=== PATIENT | male | born 1985 | race Caucasian/White ===

== ENCOUNTER 2017-05-18 11:11 | Inpatient (IN) | payer OTHER ==
--- OUTSIDE RECORDS SUMMARY | 2017-05-18 11:14 | XMS REPORT | Clinical Summary ---
:1985 Author Organization [facility] Address [address] [place] [address] Care Team Providers Name Role Phone Erwin Hall MD Primary Care Provider Allergies No Known Allergies Current Medications Prescription Sig. Disp. Refills Start End Date Status Date fexofenadine-pseudoep Take 1 tablet by Active HEDrine (JR-D) mouth daily. 60-120 mg per 12 hr tablet hydrOXYzine (ATARAX) Take 50 mg by Active 25 MG tablet mouth nightly as needed for itching. levoFLOXacin Take 500 mg by Active (LEVAQUIN) 500 MG mouth daily. tablet ALPRAZolam (XANAX) 1 Take 1 mg by Active MG tablet mouth nightly as needed for anxiety. fluticasone (FLONASE) 2 sprays by Each Active 50 mcg/actuation Nare route nasal spray daily. amLODIPine (NORVASC) Take 1 tablet (5 30 tablet 0 08/08/19 Discontinued 5 mg tablet mg total) by 7 17 mouth daily for 30 days. levoFLOXacin Take 1 tablet 30 tablet 0 08/08/19 Discontinued (LEVAQUIN) 500 MG (500 mg total) 7 17 tablet by mouth daily for 30 days. ondansetron (ZOFRAN, Take 1 tablet (4 30 tablet 0 08/08/19 Discontinued HYDROCHLORIDE,) 4 mg total) by 7 17 MG tablet mouth every 8 (eight) hours as needed for nausea or vomiting for up to 30 days. prochlorperazine Take 1 tablet 30 tablet 0 08/08/19 Discontinued (COMPAZINE) 10 MG (10 mg total) by 7 17 tablet mouth every 6 (six) hours as needed for nausea or vomiting for up to 30 days. traMADol (ULTRAM) 50 Take 1 tablet 30 tablet 0 08/07/08/08/19 Discontinued mg tablet (50 mg total) by 7 17 mouth every 6 (six) hours as needed for moderate pain for up to 30 days. traMADol (ULTRAM) 50 Take 1 tablet 30 tablet 0 08/07/08/08/19 Discontinued mg tablet (50 mg total) by 7 17 mouth every 6 (six) hours as needed for moderate pain for up to 30 days. ondansetron (ZOFRAN, Take 1 tablet (4 30 tablet 0 08/07/08/08/19 Discontinued HYDROCHLORIDE,) 4 mg total) by 7 17 MG tablet mouth every 8 (eight) hours as needed for nausea or vomiting for up to 30 days. prochlorperazine Take 1 tablet 30 tablet 0 08/07/08/08/19 Discontinued (COMPAZINE) 10 MG (10 mg total) by 7 17 tablet mouth every 6 (six) hours as needed for nausea or vomiting for up to 30 days. amLODIPine (NORVASC) Take 1 tablet (5 30 tablet 0 08/08/19 Discontinued 5 mg tablet mg total) by 7 17 mouth daily for 30 days. levoFLOXacin Take 1 tablet 30 tablet 0 08/08/19 Discontinued (LEVAQUIN) 500 MG (500 mg total) 7 17 tablet by mouth daily for 30 days. traMADol (ULTRAM) 50 Take 1 tablet 30 tablet 0 09/07/19 mg tablet (50 mg total) by 7 17 mouth every 6 (six) hours as needed for moderate pain for up to 30 days. ondansetron (ZOFRAN, Take 1 tablet (4 30 tablet 0 09/07/19 HYDROCHLORIDE,) 4 mg total) by 7 17 MG tablet mouth every 8 (eight) hours as needed for nausea or vomiting for up to 30 days. amLODIPine (NORVASC) Take 1 tablet (5 30 tablet 0 08/07/08/13/19 Discontinued 5 mg tablet mg total) by 7 17 mouth daily for 30 days. prochlorperazine Take 1 tablet 30 tablet 0 09/07/19 (COMPAZINE) 10 MG (10 mg total) by 7 17 tablet mouth every 6 (six) hours as needed for nausea or vomiting for up to 30 days. levoFLOXacin Take 1 tablet 30 tablet 0 09/07/19 (LEVAQUIN) 500 MG (500 mg total) 7 17 tablet by mouth daily for 30 days. carvedilol (COREG) Take 1 tablet 60 tablet 1 09/12/19 6.25 MG tablet (6.25 mg total) 7 17 by mouth 2 (two) times a day for 30 days. fexofenadine Take 1 tablet 60 tablet 0 09/12/19 (JR) 60 MG (60 mg total) by 7 17 tablet mouth 2 (two) times a day for 30 days. arformoterol Take 2 mL (15 120 mL 0 08/13/19 Discontinued (BROVANA) 15 mcg/2 mL mcg total) by 7 17 solution for nebulization 2 nebulization (two) times a day for 30 days. ipratropium-albuterol Take 3 mL by 360 mL 0 09/12/19 (DUO-NEB) 0.5-2.5 nebulization 4 7 17 mg/mL nebulizer (four) times a day for 30 days. apixaban (ELIQUIS) 5 Take 2 tablets 28 tablet 0 08/20/19 mg tablet (10 mg total) by 7 17 mouth 2 (two) times a day for 7 days. apixaban (ELIQUIS) 5 Take 1 tablet (5 60 tablet 0 09/20/19 Discontinued mg tablet mg total) by 7 17 mouth 2 (two) times a day for 30 days. guaiFENesin (MUCINEX) Take 1 tablet 60 tablet 0 09/12/19 600 mg tablet (600 mg total) 7 17 extended release 12hr by mouth 2 (two) times a day for 30 days. budesonide Take 2 mL (0.5 120 mL 0 08/13/19 Discontinued (PULMICORT) 0.5 mg/2 mg total) by 7 17 mL nebulizer solution nebulization 2 (two) times a day for 30 days. fluticasone (FLONASE) 2 sprays (100 15.8 mL 0 09/12/19 50 mcg/actuation mcg total) by 7 17 nasal spray Each Nare route daily for 30 days. predniSONE Take 1 tablet 12 tablet 0 08/13/19 Discontinued (DELTASONE) 10 mg (10 mg total) by 7 17 tablet mouth daily for 30 days. Take 3/day for 2 days; 2/day for 2 days; 1/day for 2 days fluticasone-vilantero Inhale 1 30 each 0 09/12/19 l (BREO ELLIPTA) inhalations 7 17 200-25 mcg/dose daily for 30 blister with device days. powder for inhalation predniSONE 2 tabs daily x 4 10 tablet 0 08/17/19 (DELTASONE) 20 mg days. 7 17 tablet carvedilol (COREG) Take 6.25 mg by 09/20/19 Discontinued 6.25 MG tablet mouth 2 (two) 17 times a day with meals. amLODIPine (NORVASC) Take 5 mg by 09/20/19 Discontinued 5 mg tablet mouth daily. 17 LEVOTHYROXINE SODIUM Take by mouth. 09/16/19 Discontinued (LEVOTHYROXINE ORAL) 17 levETIRAcetam Take 1 tablet 60 tablet 0 10/20/19 (KEPPRA) 1000 MG (1,000 mg total) 7 17 tablet by mouth 2 (two) times a day for 30 days. ondansetron ODT Take 1 tablet (4 30 tablet 0 10/20/19 (ZOFRAN-ODT) 4 MG mg total) by 7 17 disintegrating tablet mouth every 8 (eight) hours as needed for nausea or vomiting for up to 30 days. apixaban (ELIQUIS) 5 Take 1 tablet (5 60 tablet 0 10/20/19 mg tablet mg total) by 7 17 mouth 2 (two) times a day for 30 days. HYDROcodone-acetamino Take 1 tablet by 10/20/19 phen (NORCO) 5-325 mg mouth every 6 7 17 per tablet (six) hours as needed for moderate pain for up to 30 days. Max Daily Amount: 4 tablets levETIRAcetam Take 1 tablet 60 tablet 0 12/09/19 (KEPPRA) 1000 MG (1,000 mg total) 7 17 tablet by mouth 2 (two) times a day for 30 days. Active Problems Problem Noted Date Convulsions 09/14/2016 Fever 08/10/2016 Malignant neoplasm of right testis 08/03/2016 Testicular cancer 07/31/2016 Encounters Date Type Specialty Care Team Description 11/08/2016 Emergency Emergency Medicine Waqar Convulsions, Salomón unspecified MD Serjio convulsion type (Primary Dx) 09/16/2016 Procedure Pass Oncology 09/14/2016 - Hospital Encounter Oncology Rehrer, Allen Convulsions, unspecified convulsion type (Primary Dx); 09/19/2016 DO Jean Paul Malignant neoplasm of right testis, unspecified whether descended or undescended Baljeet Womack DO Nguyen, Thuyen T., MD 09/14/2016 Procedure Pass Oncology 09/04/2016 Hospital Encounter Pulmonology [place] Malignant callie Norton MD of testis, unspecified laterality, unspecified whether descended or undescended 09/03/2016 Ancillary Orders Access [facility] MD of testis, unspecified laterality, unspecified whether descended or undescended 08/25/2016 Transcribe Orders Access [facility] MD of testis, unspecified laterality, unspecified whether descended or undescended (Primary Dx) 08/24/2016 Hospital Encounter Pulmonology [facility] MD 08/20/2016 Transcribe Orders Access [facility] Malignant neoplasm of testis, unspecified laterality, unspecified whether descended or undescended ( Primary Dx); MD Cierra Localized swelling, mass, or lump of upper extremity, left; Headache, unspecified headache type 08/14/2016 Orders Only Hematology and [place] [facility] MD 08/09/2016 - Hospital Encounter Oncology John Singh Fever, unspecified fever cause (Primary Dx); 08/12/2016 DO Cierra Pulmonary embolism, other Umberto Vang MD 08/08/2016 Hospital Encounter Hematology and [place] Malignant neoplasm Oncology MD Cierra of right testis, unspecified whether descended or undescended 08/08/2016 Orders Only Hematology and [place] MD 08/03/2016 - Hospital Encounter Hematology and [facility] Malignant neoplasm 08/07/2016 Oncology MD Abdulkadir of right testis, Umberto Vang, unspecified whether MD descended or undescended 07/31/2016 Hospital Encounter Pulmonology [facility] Malignant neoplasm MD Cierra of left testis, unspecified whether descended or undescended 07/31/2016 Hospital Encounter Pulmonology [place] Malignant neoplasm MD Cierra of left testis, unspecified whether descended or undescended 07/31/2016 Orders Only Hematology and [place] [facility] MD 07/30/2016 Transcribe Orders Access [facility] Malignant callie Norton MD of left testis, unspecified whether descended or undescended (Primary Dx) after 05/17/2016 Social History Tobacco Use Types Packs/Day Years Used Date Former Smoker Cigars 03/05/2001 - 06/15/2016 Smokeless Tobacco: Former User Snuff Quit: 08/05/2016 Tobacco Cessation: Ready to Quit: Yes Comments: Tobacco free for 5 days Alcohol Use Drinks/Week oz/Week Comments No Sex Assigned at Date Recorded Not on file Last Filed Vital Signs Vital Sign Reading Time Taken Blood Pressure 135/81 11/08/2016 10:00 PM CDT Pulse 84 11/08/2016 10:00 PM CDT Temperature 36.4 C (97.6 F) 11/08/2016 10:00 PM CDT Respiratory Rate 16 11/08/2016 10:00 PM CDT Oxygen Saturation 97% 11/08/2016 10:00 PM CDT Inhaled Oxygen Concentration - - Weight 120 kg (265 lb 3.2 oz) 09/19/2016 6:12 AM CDT Height 193 cm (6' 4") 11/08/2016 7:27 PM CDT Body Mass Index 32.28 09/19/2016 6:12 AM CDT Plan of Treatment Health Maintenance Due Date Last Done Comments INFLUENZA VACCINE 09/15/2017 Procedures Procedure Name Priority Date/Time Associated Diagnosis Comments DIFFUSION CAPACITY Routine 11/11/2016 9:05 Malignant neoplasm AM CDT of testis, unspecified laterality, unspecified whether descended or undescended EEG VIDEO MONITORING STAT 09/18/2016 2:28 Results for this PM CDT procedure are in the results section. EEG VIDEO MONITORING STAT 09/18/2016 2:40 Results for this AM CDT procedure are in the results section. EEG CONTINUOUS WITH STAT 09/17/2016 3:01 Results for this VIDEO REDUCED AM CDT procedure are in SERVICE the results section. EEG AWAKE/ASLEEP STAT 09/16/2016 7:51 Results for this LESS THAN 41 MIN PM CDT procedure are in the results section. NM CRITICAL CARE, Routine 09/16/2016 11:59 Results for this E/M 30-74 MINUTES AM CDT procedure are in the results section. EEG EXTENDED 41 - 60 STAT 09/14/2016 9:14 Results for this MINS PM CDT procedure are in the results section. HC CATH DUAL LUMEN Routine 08/03/2016 2:49 Results for this PICC PM CDT procedure are in the results section. HC US GUIDED Routine 08/03/2016 2:49 Results for this VASCULAR ACCESS PM CDT procedure are in the results section. HC CVL PICC INSERT 5 Routine 08/03/2016 2:49 Results for this YRS OR > PM CDT procedure are in the results section. after 05/17/2016 Results Diffusion capacity (11/11/2016 9:05 AM)ECG ED Preliminary Interpretation - NOT AN ORDER (11/08/2016 11:35 PM)Only the most recent of2 resultswithin the time period is included. Narrative Salomón Will MD 11/08/2016 11:35 PM ECG ED Preliminary Interpretation - Not an Order Performed by: SALOMÓN WILL Authorized by: SALOMÓN WILL ECG reviewed by ED Physician in the absence of a executive officer: yes Previous ECG: Previous ECG:Unavailable Interpretation: Interpretation: normal Rate: ECG rate:84 ECG rate assessment: normal Rhythm: Rhythm: sinus rhythm QRS: QRS axis:Left ST segments: ST segments:Normal ECG 12 lead (11/08/2016 8:03 PM)Only the most recent of3 resultswithin the time period is included. Component Value Ref Range Ventricular rate 83 Atrial rate 83 NM interval 160 QRSD interval 102 QT interval 380 QTC interval 446 P axis 1 45 QRS axis 1 -17 T wave axis 21 EKG impression Normal sinus rhythm-Moderate voltage criteria for LVH, may be normal variant-Borderline ECG- Specimen Performing Laboratory [facility] MUSE [address] [place] [address] Estimated GFR (11/08/2016 8:00 PM)Only the most recent of14 resultswithin the time period is included. Component Value Ref Range GFR Non Af Amer 88 mL/min/1.73 m2 GFR Af Amer >90 mL/min/1.73 m2 Comment: Chronic kidney disease: <60 mL/min/1.73m2 Kidney failure: <15 mL/min/1.73m2 The estimated GFR is calculated from the IDMS-traceable Modification of Diet in Renal Disease Equation. The accuracy of the calculation is poor when the creatinine is normal. Calculated values >90 mL/min/1.73m2 are not reported. This equation has not been validated in children (<18 years), women, the elderly (>70 years), or ethnic groups other than Caucasians and Americans. Specimen Performing Laboratory Plasma specimen [facility] DEPARTMENT OF PATHOLOGY AND GENOMIC MEDICINE [address] [place] [id number] CBC with platelet and differential (11/08/2016 8:00 PM)Only the most recent of15 resultswithin the time period is included. Component Value Ref Range WBC 14.07 (H) 4.50 - 11.00 k/uL RBC 4.60 4.40 - 6.00 m/uL HGB 13.5 (L) 14.0 - 18.0 g/dL HCT 40.8 (L) 41.0 - 51.0 % MCV 88.7 82.0 - 100.0 fL MCH 29.3 27.0 - 34.0 pg MCHC 33.1 31.0 - 37.0 g/dL RDW - SD 43.1 37.0 - 55.0 fL MPV 11.5 8.8 - 13.2 fL Platelet count 161 150 - 400 k/uL Nucleated RBC 0.00 /100 WBC Neutrophils 83.8 (H) 39.0 - 69.0 % Lymphocytes 6.7 (L) 25.0 - 45.0 % Monocytes 4.3 0.0 - 10.0 % Eosinophils 4.3 0.0 - 5.0 % Basophils 0.4 0.0 - 1.0 % Immature granulocytes 0.5Comment: "Immature granulocytes" 0.0 - 1.0 % (promyelocytes, myelocytes, metamyelocytes) Specimen Performing Laboratory [facility] DEPARTMENT OF PATHOLOGY AND [address] [address] Phosphorus level (11/08/2016 8:00 PM)Only the most recent of9 resultswithin the time period is included. Component Value Ref Range Phosphorus 1.5 (L) 2.4 - 4.5 mg/dL Specimen Performing Laboratory Plasma specimen [facility] DEPARTMENT PATHOLOGY [address] [address] Magnesium level (11/08/2016 8:00 PM)Only the most recent of12 resultswithin the time period is included. Component Value Ref Range Magnesium 2.1 1.6 - 2.6 mg/dL Specimen Performing Laboratory Plasma specimen [facility] DEPARTMENT OF PATHOLOGY [address] [address] Alcohol level, blood (11/08/2016 8:00 PM) Component Value Ref Range Alcohol None Detected mg/dL Comment: Normal None Detected Legal Intoxication in [place]80 mg/dL (0.08%) - Whole Blood Toxic [id number] mg/dL (0.2%) Potentially [id number] - 500 mg/dL (0.35 - 0.5%) Alcohol percent None Detected % Specimen Performing Laboratory Plasma specimen [facility] DEPARTMENT OF PATHOLOGY [address] [address] Basic metabolic panel (11/08/2016 8:00 PM)Only the most recent of8 resultswithin the time period is included. Component Value Ref Range Sodium 141 135 - 148 mEq/L Potassium 3.3 (L) 3.5 - 5.0 mEq/L Chloride 99 98 - 112 mEq/L CO2 25 24 - 31 mEq/L Anion gap 17 (H) 7 - 15 mEq/L Comment: Starting from May , anion gap calculation no longer incorporates potassium. Please note the change. BUN 14 6 - 20 mg/dL Creatinine 1.0 0.7 - 1.2 mg/dL Glucose 117 (H) 65 - 99 mg/dL Calcium 9.8 8.3 - 10.2 mg/dL Specimen Performing Laboratory Plasma specimen [facility] DEPARTMENT OF PATHOLOGY AND GENOMIC MEDICINE [address] [place] [address] CT Head Wo Contrast (11/08/2016 7:55 PM)Only the most recent of2 resultswithin the time period is included. Specimen Performing Laboratory [facility] [address] [place] [address] Narrative EXAMINATION: CT HEAD WO CONTRAST CLINICAL HISTORY: seizure COMPARISON:CT brain dated September 14, 2016 and MRI dated September 15, 2016 TECHNIQUE: Noncontrast enhanced images of the brain were obtained from the skull base to the vertex. Both soft tissue and bone reconstruction algorithms were performed.CT imaging was performed with iterative reconstruction technique and/or automated exposure control to reduce radiation dose. FINDINGS: The brain parenchyma has no acute lesion. The parmar-white matter differentiation is preserved. No evidence of acute intra or extra-axial hemorrhage, mass, mass effect or acute territorial infarction. There is no acute hydrocephalus. Basal cisterns are patent. The lucency in the medial anterior right frontal lobe is unchanged in the subcortical white matter. A postinfectious/inflammatory or traumatic insult is suggested. No definite new or acute brain parenchymal lesion identified. No acute soft tissue hematoma or laceration. Paranasal sinuses shows no acute air-fluid levels. There is mild mucosal thickening in the left maxillary sinus, inferiorly. Mastoid air cells are clear. Calvarium is intact. Mastoid air cells are clear.No skull fractures or aggressive bony lesions. IMPRESSION: Again identified is a focal subcortical white matter lucency in the medial anterior right frontal lobe. This is grossly similar to the prior CT exam. In a patient with seizures, recommend follow-up MRI imaging on a nonemergent outpatient basis to show stability from September 15, 2016 MRI. This may represent a chronic insult from prior infection/inflammation or traumatic insult and could conceivably represent a seizure focus. [id number] Procedure Note Interface, Radiology Results Incoming - 11/08/2016 8:56 PM CDT EXAMINATION: CT HEAD WO CONTRAST CLINICAL HISTORY: seizure COMPARISON: CT brain dated September 14, 2016 and MRI dated September 15, 2016 TECHNIQUE: Noncontrast enhanced images of the brain were obtained from the skull base to the vertex. Both soft tissue and bone reconstruction algorithms were performed. CT imaging was performed with iterative reconstruction technique and/or automated exposure control to reduce radiation dose. FINDINGS: The brain parenchyma has no acute lesion. The parmar-white matter differentiation is preserved. No evidence of acute intra or extra-axial hemorrhage, mass, mass effect or acute territorial infarction. There is no acute hydrocephalus. Basal cisterns are patent. The lucency in the medial anterior right frontal lobe is unchanged in the subcortical white matter. A postinfectious/inflammatory or traumatic insult is suggested. No definite new or acute brain parenchymal lesion identified. No acute soft tissue hematoma or laceration. Paranasal sinuses shows no acute air-fluid levels. There is mild mucosal thickening in the left maxillary sinus, inferiorly. Mastoid air cells are clear. Calvarium is intact. Mastoid air cells are clear. No skull fractures or aggressive bony lesions. IMPRESSION: Again identified is a focal subcortical white matter lucency in the medial anterior right frontal lobe. This is grossly similar to the prior CT exam. In a patient with seizures, recommend follow-up MRI imaging on a nonemergent outpatient basis to show stability from September 15, 2016 MRI. This may represent a chronic insult from prior infection/inflammation or traumatic insult and could conceivably represent a seizure focus. [facility]-[id number] Comprehensive metabolic panel (09/19/2016 4:00 AM)Only the most recent of6 resultswithin the time period is included. Component Value Ref Range Sodium 137 135 - 148 mEq/L Potassium 4.2 3.5 - 5.0 mEq/L Chloride 99 98 - 112 mEq/L CO2 24 24 - 31 mEq/L Anion gap 14 7 - 15 mEq/L Comment: Starting from May , anion gap calculation no longer incorporates potassium. Please note the change. BUN 18 6 - 20 mg/dL Creatinine 0.8 0.7 - 1.2 mg/dL Glucose 100 (H) 65 - 99 mg/dL Calcium 9.1 8.3 - 10.2 mg/dL Protein 6.5 6.3 - 8.3 g/dL Comment: 4.6-7.0 g/dL 1 week 4.4-7.6 g/dL 7 months-1year5.1-7.3 g/dL 1-2 years5.6-7.5 g/dL >3 years6.0-8.0 g/dL 18-150 6.3-8.3 g/dL Albumin 3.3 (L) 3.5 - 5.0 g/dL A/G ratio 1.0 0.7 - 3.8 Alkaline phosphatase 47 40 - 129 U/L AST 29 10 - 50 U/L ALT 48 5 - 50 U/L Total bilirubin 0.5 0.0 - 1.2 mg/dL Specimen Performing Laboratory Plasma specimen [facility] DEPARTMENT OF PATHOLOGY AND GENOMIC MEDICINE [address] [place] [address] MRI Abdomen W Wo Contrast (09/18/2016 6:56 PM) Specimen Performing Laboratory [facility] [address] [place] [address] Narrative EXAMINATION:MRI ABDOMEN W WO CONTRAST CLINICAL HISTORY:LIVER LESION ON PREVIOUS IMAGING TECHNIQUE: Multiplanar multisequence MR images of the abdomen were obtained pre - and post dynamic intravenous administration of Gadolinium.MRCP images were obtained with 3-D reconstructions on the acquisition scanner under concurrent supervision. COMPARISON:CT scan September 15, 2016 IMPRESSION: 1. There is a small lesion at the dome of the right lobe of the liver which corresponds to the CT finding. On T2-weighted images, demonstrates bright signal. Early postcontrast images do not demonstrate any enhancement. Delayed postcontrast images are obscured by patient respiratory motion artifact. Appearance on T2-weighted images suggests a benign etiology such as a small cyst or hemangioma. Technical difficulties related to patient's inability to suspend respiration do not allow further characterization. Diffusion-weighted sequence identifies a few additional tiny lesions which cannot be characterized. I would recommend a follow-up MRI in 6 months to assess for any interval change. 2.Spleen, pancreas, adrenals, and kidneys do not demonstrate any masses. 3.There is no retroperitoneal adenopathy or upper abdominal ascites. 4.There is no abnormality of the regional bone marrow. [facility]-[id number] Procedure Note Interface, Radiology Results Incoming - 09/18/2016 9:40 PM CDT EXAMINATION: MRI ABDOMEN W WO CONTRAST CLINICAL HISTORY: LIVER LESION ON PREVIOUS IMAGING TECHNIQUE: Multiplanar multisequence MR images of the abdomen were obtained pre - and post dynamic intravenous administration of Gadolinium. MRCP images were obtained with 3-D reconstructions on the acquisition scanner under concurrent supervision. COMPARISON: CT scan September 15, 2016 IMPRESSION: 1. There is a small lesion at the dome of the right lobe of the liver which corresponds to the CT finding. On T2-weighted images, demonstrates bright signal. Early postcontrast images do not demonstrate any enhancement. Delayed postcontrast images are obscured by patient respiratory motion artifact. Appearance on T2-weighted images suggests a benign etiology such as a small cyst or hemangioma. Technical difficulties related to patient's inability to suspend respiration do not allow further characterization. Diffusion-weighted sequence identifies a few additional tiny lesions which cannot be characterized. I would recommend a follow-up MRI in 6 months to assess for any interval change. 2. Spleen, pancreas, adrenals, and kidneys do not demonstrate any masses. 3. There is no retroperitoneal adenopathy or upper abdominal ascites. 4. There is no abnormality of the regional bone marrow. [facility]-[id number] Continuous EEG monitoring (09/18/2016 2:28 PM) Narrative CONTINUOUS VIDEO-EEG MONITORING REPORT Patient Name: Tomas Hernandez Date of : 1985 Gender: male Start Date: 09/18/16 Start Time: 00:00 End Date: 09/18/16 End Time: 13:18 Indication Seizures Technical Summary Technique:Modified international 10/20 system of EEG electrode placement was used. Visual Analysis of EEG-Video Monitoring:This electroencephalogram was recorded simultaneously with video throughout the monitoring. The EEG was visually inspected and analyzed for characterization of the background activity in all awake and sleep states, abnormal focal and generalized features, and intraictal and ictal epileptiform activity. Electrical seizure activity was correlated with the patients clinical activity recorded on video and video captured clinical events were correlated with simultaneously recorded EEG activity. Computer Analysis of EEG Waveforms:The EEG underwent continuous computerized digital spectral analysis, which consisted of real time detection of electrical events that could be considered epileptiform. All electrographic events identified by the detection program were visually inspected in order to assess the waveform characteristics and significance of these electrographic events. All intraictal and ictal epileptiform events are described further below with additional details of the visual analysis of the EEG. Events detected by computer analysis that were not determined by visual analysis to be epileptiform were considered to be myogenic, biologic, mechanical, or electrical artifact in origin. Only computer detected events that have been verified by visual inspection to be interictal or ictal epileptiform discharges are reported below and considered in the final report of this monitoring study. Findings Awake Recording:The occipital dominant rhythm is 10 Hz. 18-22 Hz activity is present in all regions. Sleep Recording: No epileptiform activity was recorded. Hyperventilation: Not performed. Photic Stimulation:Not performed. Impression The background activity is within the range of normal variation. No lateralized or epileptiform activity was recorded. ICD-10 Code: R569 Continuous EEG monitoring (09/18/2016 2:40 AM) Narrative CONTINUOUS VIDEO-EEG MONITORING REPORT Patient Name: Tomas Hernandez Date of : 1985 Gender: male Start Date: 09/17/16 Start Time: 00:00 End Date: 09/17/16 End Time: 23:59 Indication Seizures Technical Summary Technique:Modified international 10/20 system of EEG electrode placement was used. Visual Analysis of EEG-Video Monitoring:This electroencephalogram was recorded simultaneously with video throughout the monitoring. The EEG was visually inspected and analyzed for characterization of the background activity in all awake and sleep states, abnormal focal and generalized features, and intraictal and ictal epileptiform activity. Electrical seizure activity was correlated with the patients clinical activity recorded on video and video captured clinical events were correlated with simultaneously recorded EEG activity. Computer Analysis of EEG Waveforms:The EEG underwent continuous computerized digital spectral analysis, which consisted of real time detection of electrical events that could be considered epileptiform. All electrographic events identified by the detection program were visually inspected in order to assess the waveform characteristics and significance of these electrographic events. All intraictal and ictal epileptiform events are described further below with additional details of the visual analysis of the EEG. Events detected by computer analysis that were not determined by visual analysis to be epileptiform were considered to be myogenic, biologic, mechanical, or electrical artifact in origin. Only computer detected events that have been verified by visual inspection to be interictal or ictal epileptiform discharges are reported below and considered in the final report of this monitoring study. Findings Awake Recording:The occipital dominant rhythm is 10 Hz. 18-22 Hz activity is present in all regions. Sleep Recording: No epileptiform activity was recorded. Hyperventilation: Not performed. Photic Stimulation:Not performed. Impression The background activity is within the range of normal variation. No lateralized or epileptiform activity was recorded. ICD-10 Code: R569 Continuous EEG monitoring (09/17/2016 3:01 AM) Narrative CONTINUOUS VIDEO-EEG MONITORING REPORT Patient Name: Tomas Hernandez Date of : 1985 Gender: male Start Date: 09/16/16 Start Time: 20:19 End Date: 09/16/16 End Time: 23:59 Indication Seizures Technical Summary Technique:Modified international 10/20 system of EEG electrode placement was used. Visual Analysis of EEG-Video Monitoring:This electroencephalogram was recorded simultaneously with video throughout the monitoring. The EEG was visually inspected and analyzed for characterization of the background activity in all awake and sleep states, abnormal focal and generalized features, and intraictal and ictal epileptiform activity. Electrical seizure activity was correlated with the patients clinical activity recorded on video and video captured clinical events were correlated with simultaneously recorded EEG activity. Computer Analysis of EEG Waveforms:The EEG underwent continuous computerized digital spectral analysis, which consisted of real time detection of electrical events that could be considered epileptiform. All electrographic events identified by the detection program were visually inspected in order to assess the waveform characteristics and significance of these electrographic events. All intraictal and ictal epileptiform events are described further below with additional details of the visual analysis of the EEG. Events detected by computer analysis that were not determined by visual analysis to be epileptiform were considered to be myogenic, biologic, mechanical, or electrical artifact in origin. Only computer detected events that have been verified by visual inspection to be interictal or ictal epileptiform discharges are reported below and considered in the final report of this monitoring study. Findings Awake Recording: The occipital dominant rhythm is 10 Hz. 18-22 Hz activity is present in all regions. Sleep Recording:No epileptiform activity was recorded. Hyperventilation: Not performed. Photic Stimulation: Not performed. Impression The background activity is within the range of normal variation. No lateralized or epileptiform activity was recorded. ICD-10 Code: R569 EEG (routine) - Baseline EEG (09/16/2016 7:51 PM) Narrative EEG AWAKE AND ASLEEP - Baseline for Bedside EEG Date of Service: 09/16/16 Awake Recording: The occipital dominant rhythm is 10 Hz. 18-22 Hz activity is present in all regions. Sleep Recording:No epileptiform activity was recorded. Hyperventilation: Not performed. Photic Stimulation: Not performed. Impression The background activity is within the range of normal variation. No lateralized or epileptiform activity was recorded. ICD-10 Code: R569 CRITICAL CARE (09/16/2016 11:59 AM) Narrative Baljeet Womack DO 09/16/2016 11:59 AM Critical Care Performed by: ALLEN FRANKEL Authorized by: ALLEN FRANKEL Critical care provider statement: Critical care time (minutes):35 Critical care time was exclusive of:Separately billable procedures and treating other patients and teaching time Critical care was time spent personally by me on the following activities:Development of treatment plan with patient or surrogate, discussions with consultants, discussions with primary provider, examination of patient, evaluation of patient's response to treatment, interpretation of cardiac output measurements, obtaining history from patient or surrogate, ordering and performing treatments and interventions, ordering and review of radiographic studies, ordering and review of laboratory studies, pulse oximetry, re-evaluation of patient's condition and review of old charts Dylan 'yes' if you are taking over critical care for this patient from another provider.: no CT Abdomen Pelvis W Contrast (09/15/2016 8:30 PM) Specimen Performing Laboratory [facility] [address] [place] [id number] Narrative EXAMINATION:CT ABDOMEN PELVIS W CONTRAST CLINICAL HISTORY:TESTICULAR CANCER TECHNIQUE: Multiple axial images of the abdomen and pelvis were obtained following intravenous administration of iodinated contrast. Sagittal and coronal computerized reformatted images were also obtained. Radiation dose reduction technique was utilized. COMPARISON:None. IMPRESSION: Abdomen: 1. There is a 1.5 cm hypodensity at the dome of the liver, which cannot be completely characterized on this study. MRI recommended for further evaluation. No additional hepatic lesions are detected. 2.Spleen, pancreas, adrenals, and kidneys are normal. 3.There is no retroperitoneal adenopathy or ascites. 4.There are no dilated or thickened loops of bowel. 5.Scans through the lung bases are normal. Pelvis: 1. The appendix is normal. 2.There is no pelvic mass, adenopathy, or fluid collection. 3.There are postoperative changes related to right orchiectomy [facility]-[id number] Procedure Note Interface, Radiology Results [facility] - 09/15/2016 8:52 PM CDT EXAMINATION: CT ABDOMEN PELVIS W CONTRAST CLINICAL HISTORY: TESTICULAR CANCER TECHNIQUE: Multiple axial images of the abdomen and pelvis were obtained following intravenous administration of iodinated contrast. Sagittal and coronal computerized reformatted images were also obtained. Radiation dose reduction technique was utilized. COMPARISON: None. IMPRESSION: Abdomen: 1. There is a 1.5 cm hypodensity at the dome of the liver, which cannot be completely characterized on this study. MRI recommended for further evaluation. No additional hepatic lesions are detected. 2. Spleen, pancreas, adrenals, and kidneys are normal. 3. There is no retroperitoneal adenopathy or ascites. 4. There are no dilated or thickened loops of bowel. 5. Scans through the lung bases are normal. Pelvis: 1. The appendix is normal. 2. There is no pelvic mass, adenopathy, or fluid collection. 3. 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 TECHNIQUE: Multiplanar multisequence examination was performed with and without contrast FINDINGS: There is no definite diffusion restriction. The ventricles and subarachnoid spaces are mildly dilated. There is a small focal area of nonspecific gliosis in the right frontal parasagittal cortex and subcortical region with mild volume loss which may be on the basis of chronic posttraumatic changes. There is no abnormal enhancement. There are no focal masses or fluid collections within the brain parenchyma or the leptomeninges. There is no abnormal uncinate of the brain parenchyma or the leptomeninges. IMPRESSION: Small focal area of nonspecific gliosis in the right frontal parasagittal area possibly on the basis of old trauma. Otherwise, the examination shows no focal abnormalities. No abnormal enhancing lesions [facility]-[id number] Procedure Note Interface, Radiology Results [facility] - 09/15/2016 5:11 PM CDT EXAMINATION: MRI BRAIN W WO CONTRAST COMPARISON: None CLINICAL HISTORY Concern for [employer] inflammation infection neoplasm. TECHNIQUE: Multiplanar multisequence examination was performed with and without contrast FINDINGS: There is no definite diffusion restriction. The ventricles and subarachnoid spaces are mildly dilated. There is a small focal area of nonspecific gliosis in the right frontal parasagittal cortex and subcortical region with mild volume loss which may be on the basis of chronic posttraumatic changes. There is no abnormal enhancement. There are no focal masses or fluid collections within the brain parenchyma or the leptomeninges. There is no abnormal uncinate of the brain parenchyma or the leptomeninges. IMPRESSION: Small focal area of nonspecific gliosis in the right frontal parasagittal area possibly on the basis of old trauma. Otherwise, the examination shows no focal abnormalities. No abnormal enhancing lesions [facility]-[id number] XR Shoulder 2+ Vw Left (09/15/2016 12:32 PM) Specimen Performing Laboratory [facility] [address] [place] [id number] Narrative EXAMINATION:XR SHOULDER 2VW LEFT CLINICAL HISTORY:BONE PAINSHOULDER, R o fracture or dislocation COMPARISON:None. IMPRESSION: The left shoulder is in normal anatomic alignment. No acute fracture or dislocation. The acromioclavicular joint and coracoclavicular space are intact. The clavicle is grossly unremarkable. The visualized portions of the left hemithorax are unremarkable. [facility]-[id number] Procedure Note Interface, Radiology Results Incoming - 09/15/2016 12:38 PM CDT EXAMINATION: XR SHOULDER 2 VW LEFT CLINICAL HISTORY: BONE PAIN SHOULDER, R o fracture or dislocation COMPARISON: None. IMPRESSION: The left shoulder is in normal anatomic alignment. No acute fracture or dislocation. The acromioclavicular joint and coracoclavicular space are intact. The clavicle is grossly unremarkable. The visualized portions of the left hemithorax are unremarkable. [id number] Urinalysis screen and microscopy, with reflex to culture (09/15/2016 7:46 AM) Only the most recent of3 resultswithin the time period is included. Component Value Ref Range Specimen site Random void Color, UA Straw Appearance, UA Clear Specific gravity, UA 1.011 1.001 - 1.035 pH, UA 6.0 5.0 - 8.5 Protein, UA Negative Negative Glucose, UA 3+ (A) Negative Ketones, UA Negative Negative Bilirubin, UA Negative Negative Blood, UA Negative Negative Nitrite, UA Negative Negative Urobilinogen, UA <2.0 <2.0 Leukocyte esterase, UA Negative Negative WBC, UA None seen 0 - 1 /HPF RBC, UA <1 0 - 1 /HPF Bacteria, UA None seen None seen Yeast, UA None seen Yeast with pseudohyphae, UA None seen Specimen Performing Laboratory Urine [facility] DEPARTMENT OF PATHOLOGY AND GENOMIC MEDICINE [address] [place] [address] Urine culture (09/15/2016 7:46 AM)Only the most recent of3 resultswithin the time period is included. Component Value Ref Range Urine culture SEE COMMENTComment: Bacteriuria screen negative. Specimen Performing Laboratory [facility] DEPARTMENT OF PATHOLOGY AND GENOMIC MEDICINE [address] [place] [address] Prothrombin time with INR (09/15/2016 7:25 AM)Only the most recent of4 resultswithin the time period is included. Component Value Ref Range Prothrombin time 14.4 12.0 - 15.0 sec INR 1.1 Comment: The International Normalized Ratio (INR) is a therapeutic monitoring tool for patients who are stable on oral anticoagulant therapy. An INR of 2.0-3.0 is suggested for deep vein thrombosis/pulmonary embolism. Specimen Performing Laboratory Blood [facility] DEPARTMENT OF PATHOLOGY AND GENOMIC MEDICINE [address] [place] [address] Thyroid stimulating hormone (09/15/2016 7:25 AM) Component Value Ref Range TSH 0.39 0.27 - 4.20 uIU/mL Specimen Performing Laboratory Plasma specimen [facility] OF PATHOLOG[facility] AND [address] [address] Ionized calcium (09/15/2016 7:25 AM) Component Value Ref Range pH 7.43 Ionized calcium 1.16 1.11 - 1.32 mmol/L Specimen Performing Laboratory Plasma specimen [facility] DEPARTMENT OF PATHOLOGY AND [facility] MED[facility] [address] [place] [address] EEG (routine) (09/14/2016 9:14 PM) Narrative EEG EXTENDED 41-60 MINS Date of Service: 09/14/16 Awake Recording: The occipital dominant rhythm is 10 Hz. 18-22 Hz activity is present in all regions. Sleep Recording:No epileptiform activity was recorded. Hyperventilation: No abnormality elicited. Photic Stimulation: No abnormality elicited. Impression The background activity is within the range of normal variation. No lateralized or epileptiform activity was recorded. ICD-10 Code: R569 Troponin (09/14/2016 5:30 PM)Only the most recent of4 resultswithin the time period is included. Component Value Ref Range Troponin <0.30 0.00 - 0.30 ng/mL Comment: 0.30 - 1.49 ng/mlMay indicate increased risk of acute coronary syndrome. >=1.5 ng/mlConsistent with acute myocardial infarction. The diagnostic value of a single normal or non-diagnostic result is questionable.Serial samples at 2-6 hour intervals are required to rule out acute myocardial injury. Specimen Performing Laboratory Blood [facility] OF PATHOLOGY AND [facility] [address] [place] [address] Lactic acid level (09/14/2016 5:30 PM)Only the most recent of2 resultswithin the time period is included. Component Value Ref Range Lactic acid 1.8 0.5 - 2.2 mmol/L Specimen Performing Laboratory Blood [facility] DEPARTMENT OF PATHOLOGY AND GENOMIC MEDICINE [address] [place] [address] Respiratory pathogen panel (09/14/2016 5:20 PM)Only the most recent of2 resultswithin the time period is included. Component Value Ref Range Respiratory pathogen panel Negative for all pathogens tested: Negative for Adenovirus Negative for Coronavirus HKU1 Negative for Coronavirus NL63 Negative for Coronavirus 229E Negative for Coronavirus OC43 Negative for Human Metapneumovirus Negative for Rhinovirus/Enterovirus Negative for Influenza A Negative for Influenza A/H1 Negative for Influenza A/H3 Negative for Influenza A/H1-2009 Negative for Influenza B Negative for Parainfluenza Virus 1 Negative for Parainfluenza Virus 2 Negative for Parainfluenza Virus 3 Negative for Parainfluenza Virus 4 Negative for Respiratory Syncytial Virus Negative for Bordetella pertussis Negative for Chlamydophila pneumoniae Negative for Mycoplasma pneumoniae This real-time PCR assay detects the presence of nucleic acids (RNA or DNA) for the respiratory pathogens listed. A result of "Not-detected" does not exclude the possibility of the presence of one or more pathogens at concentrations less than the detectable limits of the assay. Comment: Specimen Information Specimen Source: Nares Specimen Site: Left Specimen Performing Laboratory Nares - Left [facility] DEPARTMENT OF PATHOLOGY AND GENOMIC MEDICINE [address] [place] [address] XR Thoracic Spine 2 Vw (09/14/2016 4:49 PM) Specimen Performing Laboratory [facility] [address] [place], [place] [id number] Narrative EXAMINATION:XR THORACIC SPINE 2 VW CLINICAL HISTORY:back pain s p seizure COMPARISON:None. IMPRESSION: 4 views of thoracic spine were obtained. Thoracic spine alignment is within normal limits. No compression fractures or aggressive bony lesions. No significant degenerative changes. [facility]-[id number] Procedure Note Interface, Radiology Results Incoming - 09/14/2016 4:55 PM CDT EXAMINATION: XR THORACIC SPINE 2 VW CLINICAL HISTORY: back pain s p seizure COMPARISON: None. IMPRESSION: 4 views of thoracic spine were obtained. Thoracic spine alignment is within normal limits. No compression fractures or aggressive bony lesions. No significant degenerative changes. [facility]-[id number] POC glucose (09/14/2016 1:59 PM) Component Value Ref Range POC glucose 119 (H) 65 - 99 mg/dL Comment: [facility] Notified RN Meter ID: [id number] Apprentice Architect: Cyrus Powell Specimen Performing Laboratory [facility] DEPARTMENT OF PATHOLOGY AND [facility] [address] [place] [address] Manual differential (09/14/2016 1:26 PM)Only the most recent of5 resultswithin the time period is included. Component Value Ref Range Manual differential PERFORMED Neutrophils 81.0 (H) 39.0 - 69.0 % Lymphocytes 13.0 (L) 25.0 - 45.0 % Monocytes 2.0 0.0 - 10.0 % Eosinophils 0.0 0.0 - 5.0 % Basophils 0.0 0.0 - 1.0 % Metamyelocytes 0 % Myelocytes 4 % Promyelocytes 0 % Reactive lymphocytes Few Platelet slide review Rolanda slt decr Toxic granulation Slight Anisocytosis Moderate Polychromasia Moderate Ovalocytes Moderate Enlarged platelets Moderate (A) Giant platelets Occasional Specimen Performing Laboratory [facility] DEPARTMENT OF PATHOLOGY AND GENOMIC MEDICINE [address] [place] [address] Partial thromboplastin time, activated (09/14/2016 1:26 PM)Only the most recent of3 resultswithin the time period is included. Component Value Ref Range PTT 24.5 23.0 - 36.0 sec Comment: PTT therapeutic range for unfractionated heparin is 61.0-112.0 seconds which corresponds to Anti-Xa 0.3-0.7 U/ml. Specimen Performing Laboratory Blood [facility] DEPARTMENT OF PATHOLOGY AND [facility] [address] [place] [address] B natriuretic peptide (09/14/2016 1:26 PM) Component Value Ref Range BNP 41 0 - 100 pg/mL Specimen Performing Laboratory Blood [facility] DEPARTMENT OF PATHOLOGY AND [facility] [address] [place] [address] Lipase level (09/14/2016 1:26 PM) Component Value Ref Range Lipase 25 13 - 60 U/L Specimen Performing Laboratory Plasma specimen [facility] DEPARTMENT OF PATHOLOGY AND GENOMIC MEDICINE [address] [place] [address] Creatine kinase, total (CPK) (09/14/2016 1:26 PM) Component Value Ref Range Creatine kinase 93 39 - 308 U/L Specimen Performing Laboratory Plasma specimen [facility] DEPARTMENT OF PATHOLOGY [address] [address] Amylase level (09/14/2016 1:26 PM) Component Value Ref Range Amylase 24 13 - 73 U/L Specimen Performing Laboratory Plasma specimen [facility] DEPARTMENT OF PATHOLOGY [address] [address] Alpha fetoprotein (09/14/2016 1:15 PM)Only the most recent of3 resultswithin the time period is included. Component Value Ref Range Alpha fetoprotein 3.4 0.0 - 8.3 ng/mL Comment: The Rodo 8000 AFP immunoassay was used. Results obtained with different assay methods or kits should not be used interchangeably and may be different. Specimen Performing Laboratory Serum [facility] [address] [address] Blood culture, aerobic & anaerobic (09/14/2016 1:15 PM)Only the most recent of3 resultswithin the time period is included. Component Value Ref Range Blood culture isolate No growth after 5 days of incubation. Comment: Specimen Information Specimen Source: Blood Specimen Site: Right Arm Specimen Performing Laboratory Blood [facility] [address] [address] Sputum culture (08/12/2016 8:10 AM) Component Value Ref Range Sputum culture isolate Normal oral nikky isolated. Comment: Specimen Information Specimen Source: Sputum Specimen Site: Expectorated Specimen Performing Laboratory Sputum - Expectorated [facility] [address] [address] Gram stain (08/12/2016 8:10 AM) Component Value Ref Range Gram stain isolate Occasional WBC's Many Gram negative rods Many Gram positive cocci in pairs Many Gram positive rods Comment: Specimen Information Specimen Source: Sputum Specimen Site: Expectorated Specimen Performing Laboratory Sputum - Expectorated [facility] [address] [address] Anti Xa, unfractionated (08/11/2016 3:55 PM)Only the most recent of4 resultswithin the time period is included. Component Value Ref Range Anti Xa, unfractionated 0.38Comment: Therapeutic Range: 0.30 - 0.70 0.30 - 0.70 U/mL U/mL Specimen Performing Laboratory Blood [facility] DEPARTMENT OF PATHOLOGY AND GENOMIC MEDICINE [address] [place] [address] Pv duplex venous upper extremity (08/11/2016 2:20 PM)Only the most recent of2 resultswithin the time period is included. Specimen Performing Laboratory [facility] [address] [place] [address] Narrative Vascular Ultrasound Laboratory Upper Extremity Venous Report [address] [place] [address] Pat.Name:TOMAS HERNANDEZ Pat.ID:[id number] .Date: 08/11/2016 Refer.MD:KY ROY MD Exam Time: 2:01:00 PMStudy Type:UE Venous Height:74inDOBAge:1985,[age]Y Sex: MALESonogrphr: Lucy Melgar RVT Pat. Stat.:Inpatient Room:[facility] TapeVol: NC, CPT - 4: [id number] Echo Event ID:[id number] Order ID:[id number] Reason for Study:History of superficial thrombosis in right basilic vein status post PIC catheter placement on 08/03/2016. Pulmonary embolism was found on 08/09/2016. Testicular cancer status post chemo. Race:C SUMMARY: DUPLEX SCAN OBSERVATIONS Right Left IJNormal SubclavianNormal Normal AxillaryNormal BrachialNormal BasilicPartial CephalicNormal RIGHT: The basilic vein in the mid upper arm is partially compressible with soft echogenic material within the lumen and colorflow and Doppler signals are present. The remaining visualized veins are patent. LEFT: There is normal compressibility and no evidence of echogenic material noted within the lumen of the subclavian vein. Colorflow and Doppler signals are normal. PRELIMINARY FINDINGS 1. Superficial partial venous thrombosis of the basilic vein in the mid upper arm. 2. No evidence of deep venous thrombosis of the visualized veins in the right upper extremtiy. 3. In comparison to study done on 08/05/2016, the finding is unchanged. PHYSICIAN INTERPRETATION Venous examination of the right upper extremity and neck demonstrated a superficial partial venous thrombosis of the basilic vein in the mid upper arm. No change noticedcompared to study done on 08/05/2016. Signed 08/11/2016 10:04 PM Craig Lr MD, RPVI Procedure Note Interface, Radiology Results In - 08/11/2016 10:04 PM CDT Vascular Ultrasound Laboratory Upper Extremity Venous Report [address] [place] [address] Pat.Name: TOMAS HERNANDEZ.ID: [id number] .Date: 08/11/2016 Refer.MD: KY ROY MD Exam Time: 2:01:00 PM Study Type:UE Venous Height: 74in Age: 8 1985,30Y Sex: MALE Sonogrphr: MARIA T Escalante. Stat.:Inpatient Room: [address] Vol: [place], CPT - 4: [address] Echo Event ID:[id number] Order ID: [id number] Reason for Study:History of superficial thrombosis in right basilic vein status post PIC catheter placement on 08/03/2016. Pulmonary embolism was found on 08/09/2016. Testicular cancer status post chemo. Race: C SUMMARY: DUPLEX SCAN OBSERVATIONS Right Left IJ Normal Subclavian Normal Normal Axillary Normal Brachial Normal Basilic Partial Cephalic Normal RIGHT: The basilic vein in the mid upper arm is partially compressible with soft echogenic material within the lumen and colorflow and Doppler signals are present. The remaining visualized veins are patent. LEFT: There is normal compressibility and no evidence of echogenic material noted within the lumen of the subclavian vein. Colorflow and Doppler signals are normal. PRELIMINARY FINDINGS 1. Superficial partial venous thrombosis of the basilic vein in the mid upper arm. 2. No evidence of deep venous thrombosis of the visualized veins in the right upper extremtiy. 3. In comparison to study done on 08/05/2016, the finding is unchanged. PHYSICIAN INTERPRETATION Venous examination of the right upper extremity and neck demonstrated a superficial partial venous thrombosis of the basilic vein in the mid upper arm. No change noticed compared to study done on 08/05/2016. Signed 08/11/2016 10:04 PM Craig Lr MD, RPVI hCG quantitative, serum (08/11/2016 4:30 AM)Only the most recent of2 resultswithin the time period is included. Component Value Ref Range hCG quantitative, serum 14 (H) 0 - 5 mIU/mL Comment: Reference range for HCG Quant applies to males and non- females. Post Menopausal 0.0 - 8.1 mIU/mL Specimen Performing Laboratory Plasma specimen [facility] DEPARTMENT OF PATHOLOGY AND GENOMIC MEDICINE [address] [place] [address] PV duplex venous lower extremity (08/10/2016 10:00 AM) Specimen Performing Laboratory [facility] [address] [place] [address] Narrative Vascular Ultrasound Laboratory Lower Extremity Venous Report [address] [place] [address] Pat.Name:TOMAS HERNANDEZ Pat.ID:[id number] .Date: 08/10/2016 Refer.MD:UMBERTO VANG MD Exam Time: 9:54:00 AMStudy Type:LE Venous Height:74inDOBAge:1985,[age]Y Sex: MALESonogrphr: BROOKE Ochoa Pat. Stat.:Inpatient Room: TapeVol: [facility] - 4: [address] Echo Event ID:[id number] Order ID:[id number] Reason for Study:History of upper right arm blood clot. Race:C SUMMARY: DUPLEX SCAN OBSERVATIONS Deep VeinsSuperficial Veins RightLeft RightLeft EIV GSV (prox) NormalNormal CFV Normal Normal (above knee) Femoral Normal Normal GSV (dist) Normal Normal Profunda Normal Normal (below knee) Popliteal Normal Normal PT (prox) Normal NormalSSV Not Visualized Not Visualized PT (dist) Normal Normal Peroneal Normal Normal RIGHT:There is normal compressibility with no evidence of echogenic material noted within the lumen of the visualized veins.Colorflow and Doppler signals are normal. LEFT: There is normal compressibility with no evidence of echogenic material noted within the lumen of the visualized veins. Colorflow and Doppler signals are normal. PRELIMINARY FINDINGS 1.Normal venous duplex exam of the visualized veins. PHYSICIAN INTERPRETATION Venous examination of the both lower extremities demonstrated no evidence of venous thrombosis in the visualized veins. Signed 08/10/2016 11:18 AM Craig Lr MD, RPVI Procedure Note Interface, Radiology Results In - 08/10/2016 11:18 AM CDT Vascular Ultrasound Laboratory Lower Extremity Venous Report [address] [place] [address] Pat.Name: TOMAS HERNANDEZ.ID: [id number] .Date: 08/10/2016 Refer.MD: UMBERTO VANG MD Exam Time: 9:54:00 AM Study Type:LE Venous Height: 74in Age: 8 1985,30Y Sex: MALE Sonogrphr: BROOKE Ochoa Pat. Stat.:Inpatient Room: [address] Vol: , [facility] - 4: [address] Echo Event ID:[id number] Order ID: [id number] Reason for Study:History of upper right arm blood clot. Race: C SUMMARY: DUPLEX SCAN OBSERVATIONS Deep Veins Superficial Veins Right Left Right Left EIV GSV (prox) Normal Normal CFV Normal Normal (above knee) Femoral Normal Normal GSV (dist) Normal Normal Profunda Normal Normal (below knee) Popliteal Normal Normal PT (prox) Normal Normal SSV Not Visualized Not Visualized PT (dist) Normal Normal Peroneal Normal Normal RIGHT: There is normal compressibility with no evidence of echogenic material noted within the lumen of the visualized veins. Colorflow and Doppler signals are normal. LEFT: There is normal compressibility with no evidence of echogenic material noted within the lumen of the visualized veins. Colorflow and Doppler signals are normal. PRELIMINARY FINDINGS 1. Normal venous duplex exam of the visualized veins. PHYSICIAN INTERPRETATION Venous examination of the both lower extremities demonstrated no evidence of venous thrombosis in the visualized veins. Signed 08/10/2016 11:18 AM Craig Lr MD, VI CT Angiogram Pe Chest (08/10/2016 12:37 AM) Specimen Performing Laboratory [facility] [address] [place] [address] Narrative EXAMINATION: CT ANGIOGRAM PE CHEST CLINICAL HISTORY: Pulmonary Embolism - Suspected pulmonary embolism in order to establish diagnosis TECHNIQUE: CT angiographic images of the chest were obtained during intravenous administration of iodinated contrast. Computerized reformatted images and 3-D MIP images were also obtained and archived (CT pulmonary embolus protocol). CT imaging was performed with iterative reconstruction technique and/or automated exposure control to reduce radiation dose. COMPARISON: None. IMPRESSION: No consolidations, effusions, or pneumothorax. The airway is patent. Heart size is normal. No mediastinal or hilar lymphadenopathy. Some calcified mediastinal lymph nodes are seen. Best seen on series 2, images 146-151, subsegmental pulmonary artery emboli are seen of right middle lobe. Exam evaluation: Adequate Clot burden: Minimal Saddle embolus: No Ventricular septal bulging: No RV:LV: Less than 0.9 , No aortic aneurysm, dissection, or pseudoaneurysm. Spleen is enlarged measuring 13.4 cm in length. No acute osseous abnormalities. CONCLUSION: Subsegmental pulmonary artery emboli are seen of right middle lobe. Findings were discussed with and read back by Dr. JOHN SINGH at 08/10/2016 1: 46 AM who verbalized understanding. [facility]-[id number] Procedure Note Interface, Radiology Results Incoming - 08/10/2016 1:50 AM CDT EXAMINATION: CT ANGIOGRAM PE CHEST CLINICAL HISTORY: Pulmonary Embolism - Suspected pulmonary embolism in order to establish diagnosis TECHNIQUE: CT angiographic images of the chest were obtained during intravenous administration of iodinated contrast. Computerized reformatted images and 3-D MIP images were also obtained and archived (CT pulmonary embolus protocol). CT imaging was performed with iterative reconstruction technique and/or automated exposure control to reduce radiation dose. COMPARISON: None. IMPRESSION: No consolidations, effusions, or pneumothorax. The airway is patent. Heart size is normal. No mediastinal or hilar lymphadenopathy. Some calcified mediastinal lymph nodes are seen. Best seen on series 2, images 146-151, subsegmental pulmonary artery emboli are seen of right middle lobe. Exam evaluation: Adequate Clot burden: Minimal Saddle embolus: No Ventricular septal bulging: No RV:LV: Less than 0.9 , No aortic aneurysm, dissection, or pseudoaneurysm. Spleen is enlarged measuring 13.4 cm in length. No acute osseous abnormalities. CONCLUSION: Subsegmental pulmonary artery emboli are seen of right middle lobe. Findings were discussed with and read back by Dr. JOHN SINGH at 08/10/2016 1: 46 AM who verbalized understanding. [facility]-[id number] XR Chest 2 Vw (08/09/2016 10:47 PM) Specimen Performing Laboratory [facility] [address] [place] [address] Narrative EXAMINATION:XR CHEST 2 VW CLINICAL HISTORY:Fever COMPARISON:08/03/2016 IMPRESSION: No consolidations, effusions, or pneumothorax. Cardiomediastinal silhouette is within normal limits. No acute osseous abnormalities. [facility]-[id number] Procedure Note Interface, Radiology Results Incoming - 08/09/2016 10:58 PM CDT EXAMINATION: XR CHEST 2 VW CLINICAL HISTORY: Fever COMPARISON: 08/03/2016 IMPRESSION: No consolidations, effusions, or pneumothorax. Cardiomediastinal silhouette is within normal limits. No acute osseous abnormalities. [facility]-[id number] Hepatic function panel (08/06/2016 2:16 AM) Component Value Ref Range Albumin 3.5 3.5 - 5.0 g/dL Total bilirubin 0.4 0.0 - 1.2 mg/dL Bilirubin direct <0.2 0.0 - 0.3 mg/dL Alkaline phosphatase 50 40 - 129 U/L Protein 6.4 6.3 - 8.3 g/dL Comment: Blair 4.6-7.0 g/dL 1 week 4.4-7.6 g/dL 7 months-1year5.1-7.3 g/dL 1-2 years5.6-7.5 g/dL >3 years6.0-8.0 g/dL 18-150 6.3-8.3 g/dL ALT 28 5 - 50 U/L AST 17 10 - 50 U/L Specimen Performing Laboratory Plasma specimen [facility] DEPARTMENT OF PATHOLOGY AND GENOMIC MEDICINE [address] [place] [address] Narrative LIVER added per Dr. Moctezuma at 08/06/16 0955 by [facility]. PICC INSERTION (08/03/2016 2:49 PM) Narrative Dung Melgar RN 08/03/20162:49 PM PICC insertion Date/Time: 08/03/2016 2:47 PM Performed by: DUNG MELGAR Authorized by: UMBERTO VANG Consent: Consent obtained:Verbal Consent given by:Patient Risks discussed: arterial puncture, incorrect placement, nerve damage, infection, bleeding, superficial thrombus and deep vein thrombus Alternatives discussed:Delayed treatment and alternative treatment [place] protocol: Procedure explained and questions answered to patient or proxy's satisfaction: yes Relevant documents present and verified: yes Test results available and properly labeled: yes Imaging studies available: yes Required blood products, implants, devices, and special equipment available: yes Site/side marked: yes Immediately prior to procedure, a time out was called: yes Patient identity confirmed:Verbally with patient, arm band and hospital-assigned identification number Pre-procedure details: Hand hygiene: Hand hygiene performed prior to insertion Sterile barrier technique: All elements of maximal sterile technique followed Skin preparation:ChloraPrep Skin preparation agent: Skin preparation agent completely dried prior to procedure Anesthesia (see MAR for exact dosages): Anesthesia method:Local infiltration Local anesthetic:Lidocaine 1% w/o epi PICC Line Placement Details (Will create an LDA): Patient position:Flat Indication:Vesicants Location:Right basilic Device Type:Non-valved Catheter size:5 Fr PICC Characteristics: Catheter Brand:BioFlo PICC External Catheter Length (cm):0 Internal Catheter Length (cm):47 Total Catheter Length (cm):47 Catheter Lot Number:[id number] Catheter Expiration Date:06/14/2018 Procedure Details: Landmarks identified: yes Ultrasound guidance: yes Sterile ultrasound techniques: Sterile gel and sterile probe covers were used Number of attempts:1 Number of PICC kits used during procedure:1 Purpose of procedure:PICC Placement Successful PICC Placement: Yes Patency/Placement:Flushes without difficulty, flushed with 10 mL normal saline, extension tubing placed, x-ray placement verified, injection cap placed and positive blood return PICC placed utlizing ultrasound-guided Modified Seldinger Technique: Yes Dressing/Securement:Antimicrobial dressing applied Blood Loss Amount:Less than 20 mL Post-Procedure Details: Post-procedure:Dressing applied Tip placement confirmed by chest x-ray: Yes Patient tolerance of procedure:Tolerated well, no immediate complications XR Picc Chest Portable (08/03/2016 2:41 PM) Specimen Performing Laboratory [address] [address] Narrative EXAMINATION:XR PICC CHEST PORTABLE CLINICAL HISTORY:30 years Male C62.91 Malignant neoplasm of right testisunspecified whether descended or undescended, Chemotherapy [facility] COMPARISON:None IMPRESSION: 1.Right-sided PICC line terminates over the cavoatrial junction in satisfactory position. 2.Heart and central vasculature are normal. 3.Calcified granuloma right midlung. The lungs are otherwise clear. 4.No acute osseous abnormalities. [facility]-[id number] Procedure Note Interface, Radiology Results Incoming - 08/03/2016 2:51 PM CDT EXAMINATION: XR PICC CHEST PORTABLE CLINICAL HISTORY:30 years Male C62.91 Malignant neoplasm of right testis unspecified whether descended or undescended, Chemotherapy [facility] COMPARISON: None IMPRESSION: 1. Right-sided PICC line terminates over the cavoatrial junction in satisfactory position. 2. Heart and central vasculature are normal. 3. Calcified granuloma right midlung. The lungs are otherwise clear. 4. No acute osseous abnormalities. [facility]-[id number] LDH (08/03/2016 10:19 AM) Component Value Ref Range LDH 169 87 - 225 U/L Specimen Performing Laboratory Plasma specimen [facility] DEPARTMENT OF PATHOLOGY AND GENOMIC MEDICINE [address] [place] [id number] Abd/Pelvic External Study (07/15/2016 9:22 AM) Specimen Performing Laboratory [address] [address] Narrative This exam was not acquired at a [facility] facility and has not been interpreted by a [facility] Provider.The exam was imported into our imaging system for comparisons purposes. after 05/17/2016 Insurance Payer Benefit Plan / Group Subscriber ID Type Phone Address [facility] OPEN ACCESS/NETWORK xxxxxxxxxxx [facility] [phone] [place] [address]
[2017-05-18] MEDS ORDERED: LORazepam 2 MG/ML VIAL ONE (11:30)
[2017-05-18] MEDS ORDERED: levETIRAcetam 1,000 MG in NA CHLORIDE 0.9% 100 ML IV ONE (11:30)
[2017-05-18] MEDS ORDERED: TETANUS & DIPHTHERIA TOX,ADULT 0.5 ML VIAL ONE (11:40)
--- NOTE | 2017-05-18 11:49 | RAD REPORT ---
EXAM DESCRIPTION: CT - CTHCSPWOC - 05/18/2017 11:31 am CLINICAL HISTORY: Multiple seizures, fall, head and neck injury COMPARISON: None. TECHNIQUE: Axial 5 mm thick images of the head were obtained. Axial 2 mm thick images of the cervic al spine were obtained with sagittal and coronal reconstruction images generated and reviewed. All CT scans are performed using dose optimization technique as appropriate and may include automated exposure control or mA/KV adjustment according to patient size. FINDINGS: No intracranial hemorrhage, mass, edema or acute intracranial finding. No suspicion for acute infarct ion. No focal brain parenchymal abnormality seen as a seizure focus. No extra-axial fluid collections . Mastoid air cells are clear. Minimal ethmoid air cell mucosal thickening. No acute sinus finding. N o globe or orbit abnormality seen. Patient has a small to moderate right-sided parietal scalp hemato ma. No underlying bony abnormality. Cervical body height and alignment are normal. No disk space narrowing. No fracture or acute bony abn ormality. No paraspinal mass or hematoma. IMPRESSION: No hemorrhage, edema or acute intracranial finding. Negative CT cervical spine examination for acute or significant finding. Right parietal scalp hematoma is present with underlying bone intact.
[2017-05-18 11:55] LABS: Glomerular Filtration Rate > 60 mL/min (>60)
--- NOTE | 2017-05-18 12:10 | RAD REPORT ---
EXAM DESCRIPTION: Bobby Single View05/18/2017 12:04 pm CLINICAL HISTORY: Cough COMPARISON: None FINDINGS: The lungs appear clear of acute infiltrate. The heart is normal size IMPRESSION: No acute abnormalities displayed
[2017-05-18 12:12] LABS: Potassium 3.9 mEq/L (3.6-5.0)
[2017-05-18 12:17] LABS: Bilirubin Direct 0.2 mg/dL (0-0.2); Bilirubin Total 0.6 mg/dL (0.3-1.2); Protein, Total 8.4 g/dL (6.0-8.3)
[2017-05-18 12:18] LABS: Protime INR 1.02
--- NOTE | 2017-05-18 12:26 | ER ---
Nurse's Notes [facility] Name: Tomas Mathews Age: 31 yrs Sex: Male : 1985 Arrival Date: 05/18/2017 Time: 11:12 Bed 4 Private MD: Diagnosis: Epilepsy and recurrent seizures;Laceration without foreign body of scalp Presentation: 05/18 11:13 Presenting complaint: EMS states: Laceration to back of head after unwitnessed seizure hb at work, then another seizure while in route that lasted approx 45 seconds. Hx testicular CA, seizures. Takes Keppra 1500mg daily, started weaning himself off over the last 3 days, took 750 mg today. Transition of care: patient was not received from another setting of care. Onset of symptoms was May 18, 2017. Care prior to arrival: Oxygen administered. via a non-rebreather mask. 11:13 Method Of Arrival: EMS: [facility] 11:13 Acuity: TARYN 2 hb Triage Assessment: 11:13 General: Appears in no apparent distress. Behavior is postictal. Pain: Unable to use hb pain scale. FLACC scale score is 0 out of 10. Neuro: Level of Consciousness is post ictal, Oriented to person, Pupils are PERRLA. Cardiovascular: Capillary refill < 3 seconds Patient's skin is warm and dry. Respiratory: Airway is patent Trachea midline Respiratory effort is even, unlabored, Respiratory pattern is regular, symmetrical, Breath sounds are clear bilaterally. Historical: - Allergies: 11:18 No Known Allergies; hb - Home Meds: 11:18 lisinopril 20 mg Oral tab 1 tab once daily [Active]; Keppra Oral [Active]; hb - PMHx: 11:18 Hypertension; Testicular CA; Seizures; hb - PSHx: 11:18 Tonsillectomy; hb - Immunization history:: Adult Immunizations unknown. - Family history:: not pertinent. - Social history:: Smoking status: Patient/guardian denies using tobacco. Screenin:50 Abuse screen: Denies threats or abuse. Denies injuries from another. Nutritional hb screening: No deficits noted. Tuberculosis screening: No symptoms or risk factors identified. Fall Risk Total Montero Fall Scale indicates High Risk Score (45 or more points). Fall prevention measures have been instituted. Side Rails Up X 2 Frequent Obs/Assessments Occuring Family Present and informed to notify staff if the need to leave the bedside As available patient and family educated on Fall Prevention Program and Strategies. Assessment: 11:40 Reassessment: HR 180s, Dr. Jiménez at bedside. hb 11:56 Reassessment: SpO2 80% on RA, improved to 96% on 3LNC. hb 12:00 Reassessment: Patient appears in no apparent distress at this time. Patient and/or hb family updated on plan of care and expected duration. Pain level reassessed. Patient is alert, oriented x 3, equal unlabored respirations, skin warm/dry/pink. 12:14 Reassessment: Dr. Jiménez notified of critical lab CO2 of 13. ss 13:00 Reassessment: Patient appears in no apparent distress at this time. No changes from hb previously documented assessment. Patient and/or family updated on plan of care and expected duration. Pain level reassessed. Patient is alert, oriented x 3, equal unlabored respirations, skin warm/dry/pink. Admission ordered, awaiting room assignment at this time. Family remains at bedside. 13:24 Reassessment: Attempted to call report to floor, per Rena ALLEN, room has not yet been assigned to a nurse, will call back. 14:00 Reassessment: Attempted to call report to floor, receiving nurse unavailable. hb 14:00 Reassessment: Patient appears in no apparent distress at this time. No changes from hb previously documented assessment. Patient and/or family updated on plan of care and expected duration. Pain level reassessed. Patient is alert, oriented x 3, equal unlabored respirations, skin warm/dry/pink. 14:19 Reassessment: Attempted to call report to floor, receiving nurse unavailable. hb Vital Signs: 11:12 BP 147 / 114; Pulse 119; Resp 18; Temp 98; Pulse Ox 96% on 15% Non-rebreather mask; hb 11:45 BP 132 / 75; Pulse 102; Resp 26; Pulse Ox 89% on R/A; hb 11:57 Pulse Ox 96% on 3 lpm NC; hb 12:30 BP 130 / 82; Pulse 94; Resp 15; Pulse Ox 96% on 2 lpm NC; hb 13:30 BP 129 / 79; Pulse 96; Resp 16; Temp 98; Pulse Ox 98% on 2 lpm NC; hb ED Course: 11:12 Patient arrived in ED. bd 11:12 Norman Jiménez MD is Attending Physician. cory 11:12 Faby Marks, TIFFANY is Primary Nurse. hb 11:16 Triage completed. hb 11:16 Arm band placed on left wrist. hb 11:16 Patient has correct armband on for positive identification. Placed in gown. Bed in low hb position. Call light in reach. Side rails up X2. Seizure precautions initiated. 11:16 Maintain EMS IV. Dressing intact. Good blood return noted. Site clean \T\ dry. Gauge \T\ hb site: 20g RIGHT AC. 11:30 CT completed. Patient tolerated procedure well. Patient moved to CT via stretcher. sj Patient moved back from CT. 11:30 CT Head C Spine In Process Unspecified. EDMS 11:40 Wound care: to laceration located on right occipital area was cleaned with Hibiclens, hb Patient tolerated well. 11:45 Assist provider with laceration repair on right occipital area that was between 2.6 to hb 7.5 cm using hyun. Performed by Norman Jiménez MD Patient tolerated well. 11:55 XRAY Chest (1 view) Sent. hb 12:00 X-ray completed. Portable x-ray completed in exam room. jr1 12:02 XRAY Chest (1 view) In Process Unspecified. EDMS 12:24 Adam Alonso DO is Hospitalizing Provider. cory 13:31 Urine Dipstick--Ancillary (enter results) Sent. hb 14:41 Patient admitted, IV remains in place. hb 14:51 Patient moved to MRI via stretcher. ka 15:27 MRI completed. Patient tolerated well. Patient moved back from MRI. ka Administered Medications: 11:15 Drug: Ativan 2 mg Route: IVP; Site: right antecubital; ss 11:55 Follow up: Response: No adverse reaction hb 11:27 Drug: Tetanus-Diphtheria Toxoid Adult 0.5 ml {[employer]: [employer]. Exp: hb 09/17/2019. Lot #: [id number]. } Route: IM; Site: right deltoid; 12:15 Follow up: Response: No adverse reaction hb 11:36 Drug: Keppra 1000 mg Route: IV; Rate: per protocol; Site: right antecubital; hb 12:38 Follow up: Response: No adverse reaction; IV Status: Completed infusion ss 13:47 Drug: fentaNYL (PF) 25 mcg Route: IVP; Site: right antecubital; hb 14:15 Follow up: Response: No adverse reaction; Pain is decreased hb Outcome: 12:25 Decision to Hospitalize by Provider. cory 14:40 Admitted to Tele accompanied by tech, family with patient, via stretcher, room 210, hb Report called to TIFFANY Keene 14:40 Condition: stable 14:40 Instructed on the need for admit, Demonstrated understanding of instructions. 15:48 Patient left the ED. hb Signatures: Dispatcher [employer] EDMS Taryn Mclean Corey, MD MD cha Jones, Soco Chan, [facility] Demetria Linton RN RN Shelby Daniel Heather, RN RN hb Corrections: (The following items were deleted from the chart) 11:57 11:45 BP 132 / 75; Pulse 102bpm; Resp 26bpm; Pulse Ox 90% RA; hb hb 11:57 11:56 Reassessment: SpO2 80% on RA, improved to 98% on 3LNC hb hb 11:58 11:57 Pulse Ox 98% 3 lpm Nasal Cannula; hb hb
--- NOTE | 2017-05-18 12:26 | EDPHYS ---
Physician Documentation [facility] Name: Tomas Mathews Age: 31 yrs Sex: Male : 1985 Arrival Date: 05/18/2017 Time: 11:12 Bed 4 Private MD: ED Norman Parker HPI: 05/18 11:14 This 31 yrs old Male presents to ER via Unassigned with complaints of cory seizure, laceration . 11:14 The patient presents with a history of multiple seizures. Character of seizure(s): Loss cory of consciousness: the patient experienced loss of consciousness. Seizure onset: just prior to arrival. Context: the seizure(s) was witnessed, by co-worker(s). Seizure Hx: Last seizure: The patient's last seizure is unknown. Associated injury: Head/face:. The patient has not experienced similar symptoms in the past. Historical: - Allergies: 11:18 No Known Allergies; hb - Home Meds: 11:18 lisinopril 20 mg Oral tab 1 tab once daily [Active]; Keppra Oral [Active]; hb - PMHx: 11:18 Hypertension; Testicular CA; Seizures; hb - PSHx: 11:18 Tonsillectomy; hb - Immunization history:: Adult Immunizations unknown. - Family history:: not pertinent. - Social history:: Smoking status: Patient/guardian denies using tobacco. ROS: 11:14 Constitutional: Negative for fever, chills, and weight loss, Eyes: Negative for injury, cory pain, redness, and discharge, ENT: Negative for injury, pain, and discharge, Neck: Negative for injury, pain, and swelling, Cardiovascular: Negative for chest pain, palpitations, and edema, Respiratory: Negative for shortness of breath, cough, wheezing, and pleuritic chest pain, Abdomen/GI: Negative for abdominal pain, nausea, vomiting, diarrhea, and constipation, Back: Negative for injury and pain, : Negative for injury, bleeding, discharge, and swelling, MS/Extremity: Negative for injury and deformity, Skin: Negative for injury, rash, and discoloration, Psych: Negative for depression, anxiety, suicide ideation, homicidal ideation, and hallucinations, Allergy/Immunology: Negative for hives, rash, and allergies, Endocrine: Negative for neck swelling, polydipsia, polyuria, polyphagia, and marked weight changes, Hematologic/Lymphatic: Negative for swollen nodes, abnormal bleeding, and unusual bruising. 11:14 Neuro: Positive for seizure activity. Exam: 11:14 Constitutional: This is a well developed, well nourished patient who is awake, alert, cory and in no acute distress. Eyes: Pupils equal round and reactive to light, extra-ocular motions intact. Lids and lashes normal. Conjunctiva and sclera are non-icteric and not injected. Cornea within normal limits. Periorbital areas with no swelling, redness, or edema. ENT: Nares patent. No nasal discharge, no septal abnormalities noted. Tympanic membranes are normal and external auditory canals are clear. Oropharynx with no redness, swelling, or masses, exudates, or evidence of obstruction, uvula midline. Mucous membranes moist. Neck: Trachea midline, no thyromegaly or masses palpated, and no cervical lymphadenopathy. Supple, full range of motion without nuchal rigidity, or vertebral point tenderness. No Meningismus. Chest/axilla: Normal chest wall appearance and motion. Nontender with no deformity. No lesions are appreciated. Cardiovascular: Regular rate and rhythm with a normal S1 and S2. No gallops, murmurs, or rubs. Normal PMI, no JVD. No pulse deficits. Respiratory: Lungs have equal breath sounds bilaterally, clear to auscultation and percussion. No rales, rhonchi or wheezes noted. No increased work of breathing, no retractions or nasal flaring. Abdomen/GI: Soft, non-tender, with normal bowel sounds. No distension or tympany. No guarding or rebound. No evidence of tenderness throughout. Back: No spinal tenderness. No costovertebral tenderness. Full range of motion. Male : Normal genitalia with no discharge or lesions. Skin: Warm, dry with normal turgor. Normal color with no rashes, no lesions, and no evidence of cellulitis. MS/ Extremity: Pulses equal, no cyanosis. Neurovascular intact. Full, normal range of motion. Neuro: Awake and alert, GCS 15, oriented to person, place, time, and situation. Cranial nerves II-XII grossly intact. Motor strength 5/5 in all extremities. Sensory grossly intact. Cerebellar exam normal. Normal gait. Psych: Awake, alert, with orientation to person, place and time. Behavior, mood, and affect are within normal limits. 11:14 Head/face: Noted is a laceration(s), that is linear, of the left occipital area and right occipital area. Vital Signs: 11:12 BP 147 / 114; Pulse 119; Resp 18; Temp 98; Pulse Ox 96% on 15% Non-rebreather mask; hb 11:45 BP 132 / 75; Pulse 102; Resp 26; Pulse Ox 89% on R/A; hb 11:57 Pulse Ox 96% on 3 lpm NC; hb 12:30 BP 130 / 82; Pulse 94; Resp 15; Pulse Ox 96% on 2 lpm NC; hb 13:30 BP 129 / 79; Pulse 96; Resp 16; Temp 98; Pulse Ox 98% on 2 lpm NC; hb Laceration: 11:46 Wound Repair of 3.0cm ( 1.2in ) subcutaneous laceration to right occipital area. cory Irregularly shaped.. Distal neuro/vascular/tendon intact. Anesthesia: no ansthesia with 0 mls of 1% lidocaine. Wound prep: Simple cleansing by nurse by sc. Skin closed with 6 1-0 Alysa using staple gun. Dressed with pressure dressing. Patient tolerated well. MDM: 11:12 Patient medically screened. [facility] 11:17 Data reviewed: vital signs, nurses notes, lab test result(s), EKG, radiologic studies, [facility] CT scan, plain films. 05/18 11:14 Order name: Basic Metabolic Panel; Complete Time: 12:23 [facility] 05/18 11:14 Order name: BNP [facility] 05/18 11:14 Order name: CBC with Diff; Complete Time: 13:55 [facility] 05/18 11:14 Order name: Ckmb; Complete Time: 12:23 05/18 11:14 Order name: CPK; Complete Time: 12:23 [facility] 05/18 11:14 Order name: LFT's; Complete Time: 12:23 [facility] 05/18 11:14 Order name: Magnesium; Complete Time: 12:23 05/18 11:14 Order name: PT-INR; Complete Time: 12:55 [facility] 05/18 11:14 Order name: Ptt, Activated; Complete Time: 12:55 [facility] 05/18 11:14 Order name: Troponin (emerg Dept Use Only); Complete Time: 12:08 [facility] 05/18 11:14 Order name: Creatinine for Radiology; Complete Time: 12:08 [facility] 05/18 12:14 Order name: Type and Screen Tube method; Complete Time: 13:35 [facility] 05/18 13:03 Order name: Urine Dipstick--Ancillary (enter results) 05/18 11:14 Order name: XRAY Chest (1 view); Complete Time: 12:23 [facility] 05/18 11:14 Order name: EKG; Complete Time: 11:15 [facility] 05/18 11:14 Order name: Cardiac monitoring; Complete Time: 11:28 [facility] 05/18 11:14 Order name: EKG - Nurse/Tech; Complete Time: 11:49 [facility] 05/18 11:14 Order name: IV Saline Lock; Complete Time: 11:28 [facility] 05/18 11:14 Order name: Labs collected and sent; Complete Time: 11:28 [facility] 05/18 11:14 Order name: O2 Per Protocol; Complete Time: 11:28 [facility] 05/18 11:14 Order name: CT Head C Spine; Complete Time: 12:08 [facility] 05/18 12:29 Order name: CONS Physician Consult [facility] 05/18 13:38 Order name: Urine Dipstick-Ancillary; Complete Time: 13:55 [facility] 05/18 14:18 Order name: ABO/RH no charge [facility] 05/18 11:14 Order name: O2 Sat Monitoring; Complete Time: 11:28 [facility] 05/18 11:14 Order name: Urine Dipstick-Ancillary (obtain specimen); Complete Time: 12:56 [facility] 05/18 11:14 Order name: Seizure Precautions; Complete Time: 11:55 [facility] 05/18 12:53 Order name: Labs - recollect needed; Complete Time: 13:02 bd Administered Medications: 11:15 Drug: Ativan 2 mg Route: IVP; Site: right antecubital; ss 11:55 Follow up: Response: No adverse reaction hb 11:27 Drug: Tetanus-Diphtheria Toxoid Adult 0.5 ml {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 Exp: hb 09/17/2019. Lot #: [id number]. } Route: IM; Site: right deltoid; 12:15 Follow up: Response: No adverse reaction hb 11:36 Drug: Keppra 1000 mg Route: IV; Rate: per protocol; Site: right antecubital; hb 12:38 Follow up: Response: No adverse reaction; IV Status: Completed infusion 13:47 Drug: fentaNYL (PF) 25 mcg Route: IVP; Site: right antecubital; hb 14:15 Follow up: Response: No adverse reaction; Pain is decreased hb Disposition: 05/18/17 12:25 Hospitalization ordered by Adam Alonso for Observation. Preliminary diagnosis are Epilepsy and recurrent seizures, Laceration without foreign body of scalp. - Bed requested for Telemetry/MedSurg (observation). - Status is Observation. hb - Condition is Fair. - Problem is new. - Symptoms have improved. UTI on Admission? Yes Signatures: Dispatcher [employer] EDMS Taryn Mclean Corey, MD MD cha Therrien, Shelly, MANAGER STONE-C MANAGER STONE-Varghesew Demetria Linton, TIFFANY RN Faby Marks, TIFFANY RN hb Corrections: (The following items were deleted from the chart) 12:14 11:14 TYPE AND SCREEN+[id number].LAB.BRZ ordered. EDMS EDMS
[2017-05-18] MEDS ORDERED: ACETAMINOPHEN 500 MG TAB PO PRN (13:00)
[2017-05-18] MEDS ORDERED: NA CHLORIDE 0.9% 1,000 ML IV SCH (13:00)
--- NOTE | 2017-05-18 13:16 | P.HP ---
Certification for Inpatient Patient admitted to: Observation With expected LOS: <2 Midnights Patient will require the following post-hospital care: None Practitioner: I am a practitioner with admitting privileges, knowledge of patient current condition, hospital course, and medical plan of care. Services: Services provided to patient in accordance with Admission requirements found in Title 42 Section 412.3 of the Code of Federal Regulations <Essie Le - Last Filed: 05/18/17 13:10> Patient admitted to: Observation With expected LOS: <2 Midnights Patient will require the following post-hospital care: None Practitioner: I am a practitioner with admitting privileges, knowledge of patient current condition, hospital course, and medical plan of care. Services: Services provided to patient in accordance with Admission requirements found in Title 42 Section 412.3 of the Code of Federal Regulations <Adam Alonso - Last Filed: 05/18/17 18:26> Patient History Date of Service: 05/18/17 Reason for admission: Seizure x 2, closed head injury History of Present Illness: Pt with history of testicular cancer. Pt underwent chemo last year and had first time seizure. Pt has not had recurrent seizures so began weaning himself from Keppra this week. Pt was at work, was washing hands and felt like he might have seizure, awoke on ground with laceration to occiput. EMS was contacted. On arrival to ED pt had a second short lived seizure. He was loaded with Keppra. Laceration to occiput was repaired. CT head and C-spine negative for acute findings other than occipital scalp hematoma Home medications list reviewed: Yes (Lisinopril 20mg po daily, Keppra ) - Past Medical/Surgical History Has patient received pneumonia vaccine in the past: No Diabetic: No -: Testicular cancer 1 yr ago <Mimi,Essie - Last Filed: 05/18/17 13:10> Date of Service: 05/18/17 - Past Medical/Surgical History Past Surgical History: Reviewed- Non-Contributory Psychosocial/ Personal History: Patient is - Family History Father History Unknown: Yes -: Hypertension Mother -: Hypertension, Other (see notes) (Hashimotos, ) Notes: Glaucoma - Social History Smoking Status: Unknown if ever smoked Alcohol use: No CD- Drugs: No Caffeine use: No Place of Residence: Home <Adam Alonso Last Filed: 05/18/17 18:26> Allergies No Known Allergies Allergy (Verified 05/18/17 16:34) Review of Systems General: Unremarkable Eyes: Unremarkable ENT: Unremarkable Respiratory: Unremarkable Cardiovascular: Unremarkable Gastrointestinal: Unremarkable Genitourinary: Unremarkable Musculoskeletal: Unremarkable Integumentary: Other (laceration to back of head) Neurological: Seizures, Other (headache) Lymphatics: Unremarkable <Essie Le Last Filed: 05/18/17 13:10> General: Unremarkable Eyes: Unremarkable ENT: Unremarkable Respiratory: Unremarkable Cardiovascular: Unremarkable Gastrointestinal: Unremarkable Genitourinary: Unremarkable Musculoskeletal: Unremarkable Integumentary: Other Neurological: Seizures, Other Lymphatics: Unremarkable <Adam Alonso Last Filed: 05/18/17 18:26> Physical Examination - Vital Signs Temperature: 98 F Blood Pressure: 147/114 Pulse: 119 Respirations: 18 Pulse Ox (%): 96 (on NRB at 100%) - Physical Exam General: Alert HEENT: Normocephalic, Other (repaired lac to occiput, no bleeding, pt bit tongue during seizure, tender, no bleeding) Neck: Supple Respiratory: Clear to auscultation bilaterally Cardiovascular: No edema, Normal pulses, Regular rate/rhythm, Normal S1 S2, Other (tachycardia) Capillary refill: <2 Seconds Gastrointestinal: Normal bowel sounds Musculoskeletal: No clubbing, No swelling, No contractures, No erythema Integumentary: Other (scalp lac as detailed) Neurological: Normal speech, Normal strength at 5/5 x4 extr, Normal tone Lymphatics: No axilla or inguinal lymphadenopathy External genitalia: Non-tender Rectal: Deferred - Studies Laboratory Data (last 24 hrs) 05/18/17 11:20: Creatinine 1.09 05/18/17 11:20: PT 12.0, INR 1.02, APTT 21.5 L 05/18/17 11:20: Sodium 144, Potassium 3.9, BUN 13, Creatinine 1.14, Glucose 114 , Magnesium 2.0, Total Bilirubin 0.6, AST 34, ALT 27, Alkaline Phosphatase 54 <Essie Le Last Filed: 05/18/17 13:10> - Physical Exam General: Alert HEENT: Normocephalic, Other Neck: Supple Respiratory: Clear to auscultation bilaterally Cardiovascular: No edema, Normal pulses, Regular rate/rhythm, Normal S1 S2, Other Capillary refill: <2 Seconds Gastrointestinal: Normal bowel sounds, No masses, No rebound, No guarding Musculoskeletal: No clubbing, No swelling, No contractures, No erythema Integumentary: Other Neurological: Normal speech, Normal strength at 5/5 x4 extr, Normal tone Lymphatics: No axilla or inguinal lymphadenopathy External genitalia: Non-tender Rectal: Deferred - Studies Laboratory Data (last 24 hrs) 05/18/17 11:20: Creatinine 1.09 05/18/17 11:20: PT 12.0, INR 1.02, APTT 21.5 L 05/18/17 11:20: Sodium 144, Potassium 3.9, BUN 13, Creatinine 1.14, Glucose 114 , Magnesium 2.0, Total Bilirubin 0.6, AST 34, ALT 27, Alkaline Phosphatase 54 <Adam Alonso - Last Filed: 05/18/17 18:26> Assessment and Plan - Problems (Diagnosis) (1) Seizure Onset Date: ~05/18/17 Current Visit: Yes Status: Acute Comment: Aura followed by unwitnessed seizure Plan: Consult Dr. Robb. MRI brain. Will cover with Danny and let Dr. Robb kindly re -address (2) Head ache Onset Date: ~05/18/17 Current Visit: Yes Status: Acute Comment: S/p closed head injury and seizure Plan: Medicate for pain prn, Observe with neurochecks q 2 hours x 6 and then q4h x 6 and prn QualifierTitle: Headache chronicity pattern: unspecified pattern Intractability: not intractable Qualified Code(s): R51 - Headache - Plan As per exam and treatment for seizure Discharge Plan: Home Plan to discharge in: 24 Hours - Advance Directives Does patient have a Living Will: No Does patient have a Durable POA for Healthcare: No - Code Status/Comfort Care Code Status Assessed: Yes Code Status: Full Code <Essie Le - Last Filed: 05/18/17 13:10> - Problems (Diagnosis) (1) Laceration Current Visit: Yes Status: Acute (2) History of testicular cancer Current Visit: Yes Status: Chronic (3) Seizure Onset Date: ~05/18/17 Current Visit: Yes Status: Acute - Plan Patient will be placed back to his previous regimen of Keppra. Neurology consulted. Will check EEG. Patient had hematoma with laceration to the right parietal area. This will be treated. Will monitor closely. Will reassess tomorrow. Discharge Plan: Home Plan to discharge in: 24 Hours - Advance Directives Does patient have a Living Will: No Does patient have a Durable POA for Healthcare: No - Code Status/Comfort Care Code Status Assessed: Yes Code Status: Full Code Time Spent Managing Pts Care (In Minutes): 55 <Adam Alonso - Last Filed: 05/18/17 18:26>
[2017-05-18 13:28] LABS: Absolute Lymphocytes (CBC) 0.7 K/uL (0.7-4.9); Absolute Monocytes 0.6 K/uL (0.1-1.3); Absolute Neutrophil 11.1 K/uL (1.8-8.0); Basophils % 0.2 % (0-1.3); Eosinophils % 0.6 % (0-4.4); Hematocrit 45.6 % (39.6-49.0); Lymphocytes % 5.4 % (15.3-44.8); MCV 86.5 fL (80-100); MPV 10.1 fL (7.6-11.3); Monocytes % 4.9 % (3.3-12.3); RBC Red Blood Cell Count 5.27 M/uL (4.33-5.43)
[2017-05-18 13:37] LABS: Urine Blood 2+ (NEG); Urine Glucose NEGATIVE (NEG); Urine Protein 2+ (NEG); Urine Specific Gravity 1.025 (1.005-1.030); Urine pH 5.5 (5.0-7.0)
[2017-05-18] MEDS ORDERED: FENTANYL CITR 100 MCG/2 ML ONE (14:03)
--- NOTE | 2017-05-18 14:26 | P.HP ---
Patient History Date of Service: 05/18/17 Reason for admission: Seizure x 2, closed head injury History of Present Illness: Pt with history of testicular cancer. Pt underwent chemo last year and had first time seizure. Pt has not had recurrent seizures so began weaning himself from Keppra this week. Pt was at work, was washing hands and felt like he might have seizure, awoke on ground with laceration to occiput. EMS was contacted. On arrival to ED pt had a second short lived seizure. He was loaded with Keppra. Laceration to occiput was repaired. CT head and C-spine negative for acute findings other than occipital scalp hematoma Allergies No Known Allergies Allergy (Unverified 05/18/17 13:14) - Past Medical/Surgical History Has patient received pneumonia vaccine in the past: No Diabetic: No -: Testicular cancer 1 yr ago -: orchiectomy - Family History Father -: Hypertension Mother -: Hypertension, Other (see notes) (Prisca, ) - Social History Smoking Status: Never smoker Smoking therapy provided: No Patient receptive to therapy: Yes Alcohol use: No CD- Drugs: No Caffeine use: Yes Place of Residence: Home Physical Examination - Vital Signs Temperature: 98 F Blood Pressure: 147/114 Pulse: 119 Respirations: 18 Pulse Ox (%): 96 (on NRB at 100%) - Studies Laboratory Data (last 24 hrs) 05/18/17 11:20: Creatinine 1.09 05/18/17 11:20: PT 12.0, INR 1.02, APTT 21.5 L 05/18/17 11:20: Sodium 144, Potassium 3.9, BUN 13, Creatinine 1.14, Glucose 114 , Magnesium 2.0, Total Bilirubin 0.6, AST 34, ALT 27, Alkaline Phosphatase 54 Assessment and Plan - Problems (Diagnosis) (1) Seizure Onset Date: ~05/18/17 Current Visit: Yes Status: Acute Comment: Aura followed by unwitnessed seizure Plan: Consult Dr. Robb. MRI brain. Will cover with Keppra and let Dr. Robb kindly re -address (2) Head ache Onset Date: ~05/18/17 Current Visit: Yes Status: Acute Comment: S/p closed head injury and seizure Plan: Medicate for pain prn, Observe with neurochecks q 2 hours x 6 and then q4h x 6 and prn Qualifiers: Headache chronicity pattern: unspecified pattern Intractability: not intractable Qualified Code(s): R51 - Headache - Plan As per exam and treatment for seizure - Advance Directives Does patient have a Living Will: No Does patient have a Durable POA for Healthcare: No
--- NOTE | 2017-05-18 14:30 | P.PN ---
Subjective Date of Service: 05/18/17 Chief Complaint: Seizure x 2, closed head injury Pt's PCP is at the [facility], Dr. Ping Mallory. Sees Dr. Robb. Urologist at [facility], Dr. Jimenez. Dx testicular ca July 09, "cancer free September 2016" Physical Examination - Vital Signs Temperature: 98 F Blood Pressure: 147/114 Pulse: 119 Respirations: 18 Pulse Ox (%): 96 (on NRB at 100%) - Studies Laboratory Data (last 24 hrs) 05/18/17 11:20: Creatinine 1.09 05/18/17 11:20: PT 12.0, INR 1.02, APTT 21.5 L 05/18/17 11:20: Sodium 144, Potassium 3.9, BUN 13, Creatinine 1.14, Glucose 114 , Magnesium 2.0, Total Bilirubin 0.6, AST 34, ALT 27, Alkaline Phosphatase 54 Assessment And Plan - Current Problems (Diagnosis) (1) Seizure Onset Date: ~05/18/17 Current Visit: Yes Status: Acute Comment: Aura followed by unwitnessed seizure Plan: Consult Dr. Robb. MRI brain. Will cover with Danny and let Dr. Robb kindly re -address (2) Head ache Onset Date: ~05/18/17 Current Visit: Yes Status: Acute Comment: S/p closed head injury and seizure Plan: Medicate for pain prn, Observe with neurochecks q 2 hours x 6 and then q4h x 6 and prn Qualifiers: Headache chronicity pattern: unspecified pattern Intractability: not intractable Qualified Code(s): R51 - Headache - Plan As per exam and treatment for seizure
--- NOTE | 2017-05-18 15:59 | RAD REPORT ---
EXAM DESCRIPTION: MRI - Brain W/Wo Cont - 05/18/2017 3:28 pm CLINICAL HISTORY: Seizures, testicular carcinoma status post surgery and chemotherapy, fall, head in jury COMPARISON: None. TECHNIQUE: Sagittal and axial T1-weighted images were obtained. Axial PD/heavily T2-weighted and T2- FLAIR images were obtained along with axial DWI/ADC mapping sequences. Coronal heavily T2 weighted s equence obtained. Axial and coronal post-contrast T1-weighted images were also obtained. A ml Magne vist contrast following utilized. FINDINGS: No intracranial acute hemorrhage. Patient has a moderate-sized scalp hematoma on the right . There is artifact related to recent placement of hyun for laceration repair. Within the brain pa renchyma there is no mass, edema or signal abnormality. No infarction changes are identifiable. Signa l voids are seen as a normal finding in the major intracranial vessels. Postcontrast imaging shows no abnormal enhancement within the brain parenchyma or dura. No skull abno rmalities identified to suspect bony metastatic disease. No focal abnormalities are seen as a maligna nt or non malignant seizure focus. Mastoid air cells and paranasal sinuses are clear. IMPRESSION: No evidence for intracranial metastatic disease. No focal abnormality of the brain pare nchyma.
[2017-05-18] MEDS: NA CHLORIDE 0.9% 1,000 ML IV SCH (18:33)
[2017-05-18] MEDS: levETIRAcetam 500 MG TAB PO SCH (20:15)
[2017-05-18] MEDS ORDERED: ANASTROZOLE 1 MG TAB PO SCH (21:00)
[2017-05-18] MEDS ORDERED: levETIRAcetam 500 MG TAB PO SCH (21:00)
--- NOTE | 2017-05-18 23:10 | CON ---
Date of Consultation: 05/18/2017 Time: 1945 hours. Reason For Consultation: Seizure. History Of Present Illness: A 31-year-old gentleman with [facility] He had a few seizures last year that started while he was getting chemotherapy, so he felt like it might be related to the chemotherapy, but even now that the singular carcinoma is in remission, th e patient had several complex partial seizure auras. He was being maintained on max dose Keppra 1500 twice daily. He was doing well, had not had any event. Brain MRI in February this year at [facility] demonstrated a small 3.5 mm area in the right frontal lobe of abnormal signal/gliosis , likely related to prior trauma, possibly the seizure focus. The patient was weaning off medication as he had been doing well, had gone down to 750 mg twice daily. He was at work today. 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 Laceration to the occipital region was found there, confused. EMS summoned, had a witnesse d seizure en route to the hospital. Here loaded with Keppra. Has not had any further seizures. Bra in MRI was normal. The small area of gliosis did not really readily apparent on MR imaging here. No abnormal enhancement. No more seizures. The patient feels well. He did bite his tongue. He felt a laceration in the occiput as noted. Consultation was requested. Past Medical History: As alluded to. Medications: Normally Keppra 1500 twice daily, Cialis as needed, Arimidex, lisinopril. Allergies: NONE. Social History: Employed. Not drinking, not smoking. . Independent with activities of [employer] living. Family History: No family history of seizures. Review of Systems: General: Good health. Eyes: Negative. Ears, nose, throat: Negative. Cardiovascular: Hypertension. Pulmonary: Negative. GI: Negative. : Testicular carcinoma. Musculoskeletal: Arthralgias. Neurologic: As noted. Psychiatric: Negative. Endocrine: Negative. Hematologic: Negative. Physical Examination: Vital Signs: Pulse 100, temperature 97, respiratory rate 20, blood pressure 138/76. General: Pleasant, healthy gentleman lying in bed, in no distress. Awake, alert, oriented to time, person, place, situation. Heart: Sinus rhythm. Lungs: Clear. Abdomen: Soft. Bowel sounds present. No carotid bruits. HEENT: Pupils reactive. Ocular motion full without nystagmus. Visual [place] full to confrontation bilaterally. Facial strength and sensation normal. Tongue, midline laceration, right posterior tong ue. Soft palate elevates bilaterally. Extremities: Strength full. Sensation intact. Reflexes 1/4 symmetric. Toes are downgoing. Cerebe llar exam demonstrates no ataxia. Pertinent Laboratory Data: White count 12.5. PT and PTT normal. Electrolytes; CO2 13. Magnesium 2 , calcium 10.5. Urinalysis; 2+ blood, 2+ protein. Impression: Complex partial seizures, breakthrough seizure secondary to down titration of medication s. Plan: Repeat labs in the morning. Continue Keppra 1500 twice daily. I think he could be safely dis charged back to home tomorrow on his maintenance Keppra if he does not have any further events tonigh t. Seizure precautions on discharge; no driving, no tub baths, no ladders, no heights, no operating heavy machinery. He works at [employer] with outside/inside job that involves heights. He will [employer] need to have some restrictions on his job for at least the next 90 days. Thank you for the consult. ISRRAEL/AILYN Voice ID: [id number] Report ID: [id number]
[2017-05-19] MEDS: NA CHLORIDE 0.9% 1,000 ML IV SCH ×2 (02:46→11:48)
[2017-05-19 05:15] LABS: Absolute Lymphocytes (CBC) 1.9 K/uL (0.7-4.9); Absolute Monocytes 0.7 K/uL (0.1-1.3); Absolute Neutrophil 5.3 K/uL (1.8-8.0); Basophils % 0.3 % (0-1.3); Eosinophils % 2.1 % (0-4.4); Hematocrit 40.4 % (39.6-49.0); Lymphocytes % 22.9 % (15.3-44.8); MCH 29.1 pg (27.0-35.0); MCV 86.5 fL (80-100); MPV 10.3 fL (7.6-11.3); Monocytes % 9.1 % (3.3-12.3); RBC Red Blood Cell Count 4.67 M/uL (4.33-5.43)
[2017-05-19 05:40] LABS: BUN Blood Urea Nitrogen 10 mg/dL (6-20); Bicarbonate 26 mEq/L (21-31); Glomerular Filtration Rate > 90 mL/min (=/>90); Glucose Level 98 mg/dL (65-120); Sodium Level 138 mEq/L (135-145)
[2017-05-19] MEDS ORDERED: LORazepam 2 MG/ML VIAL IV ONE (07:16)
[2017-05-19] MEDS ORDERED: LORazepam 2 MG/ML VIAL IV PRN (07:19)
[2017-05-19] MEDS: MORPHINE 4 MG/ML SYR IV PRN ×2 (07:26→11:45)
--- NOTE | 2017-05-19 07:38 | EKG ---
Test Date: 2017-05-18 Test Time: 11:40:32 Manager Power: [facility] MEASUREMENT RESULTS: Intervals: Rate: 128 IA: 138 QRSD: 80 QT: 304 QTc: 443 Hewitt: P: 51 IA: 138 QRS: -26 T: 28 INTERPRETIVE STATEMENTS: Sinus tachycardia Otherwise normal ECG No previous ECG available for comparison Electronically Signed On 05-19-17 07:35:07 CDT by Omari Alvarado
--- NOTE | 2017-05-19 08:06 | P.PN ---
Subjective Date of Service: 05/19/17 Chief Complaint: Seizure x 2, closed head injury Subjective: Other (Patient had seizure early this morning. It lasted less than 2 min. It resolved on its own. Patient then had severe headache. The patient pulled out his IV. The patient was placed black to bed) Physical Examination - Vital Signs Temperature: 99.5 F Blood Pressure: 111/64 Pulse: 74 Respirations: 18 Pulse Ox (%): 96 - Physical Exam General: Alert, In no apparent distress, Oriented x3, Cooperative HEENT: Other ([place] noted to the right parietal region. No bleeding noted.) Neck: Supple Respiratory: Clear to auscultation bilaterally, Normal air movement Cardiovascular: Normal pulses, Regular rate/rhythm Gastrointestinal: Normal bowel sounds, Soft and benign, Non-distended, No tenderness, No masses, No rebound, No guarding Musculoskeletal: No erythema, No tenderness, No warmth Integumentary: No tenderness/swelling, No erythema, No warmth, No cyanosis Neurological: Normal speech, Normal strength at 5/5 x4 extr, Normal tone, Normal affect - Studies Laboratory Data (last 24 hrs) 05/18/17 11:20: Creatinine 1.09 05/18/17 11:20: PT 12.0, INR 1.02, APTT 21.5 L 05/18/17 11:20: Sodium 144, Potassium 3.9, BUN 13, Creatinine 1.14, Glucose 114 , Magnesium 2.0, Total Bilirubin 0.6, AST 34, ALT 27, Alkaline Phosphatase 54 Medications List Reviewed: Yes Assessment & Plan - Problems (Diagnosis) (1) Laceration Current Visit: Yes Status: Acute Plan: Alysa in place to the right parietal region. Patient with severe headache this morning. Will recheck CT scan to monitor for any bleeding. Patient did have seizure. Will transfer the patient to ICU for better control. Patient on medication for seizure (2) History of testicular cancer Current Visit: Yes Status: Chronic Plan: This is currently in remission (3) Seizure Onset Date: ~05/18/17 Current Visit: Yes Status: Acute Plan: Patient has history of complex partial seizures. Patient had been wean off his medication since he had been without any seizures. This led to his seizure yesterday. Patient will need to be back on his seizure medication-Keppra 1500 mg 1 pill twice daily. Patient had seizure this morning. Will transfer the patient to ICU for better monitoring. Will check CT scan of the head due to severe headache. Swallowing will need to be assessed. Will provide medication for seizures if needed. Will provide medication for pain. If stable in the next 24 hr then the patient may be able to be discharged with his medication. Work restriction may be required. Will discuss with Neurology, EEG has been ordered Discharge Plan: Home Plan to discharge in: 24 Hours Time Spent Managing Pts Care (In Minutes): 55
[2017-05-19] MEDS ORDERED: CLOMIPHENE CITRATE 50 MG PO SCH (09:00)
[2017-05-19] MEDS: LISINOPRIL 20 MG TAB PO SCH (09:35)
[2017-05-19] MEDS: levETIRAcetam 500 MG TAB PO SCH ×2 (09:36→21:32)
[2017-05-19] MEDS: HYDROCODONE/APAP 7.5/325 MG TAB PO PRN ×2 (09:41→23:01)
--- NOTE | 2017-05-19 09:49 | RAD REPORT ---
EXAM DESCRIPTION: CT - Head Brain Wo Cont - 05/19/2017 8:18 am CLINICAL HISTORY: Headache, altered consciousness. COMPARISON: 05/18/2017 TECHNIQUE: All CT scans are performed using dose optimization technique as appropriate and may inclu de automated exposure control or mA/KV adjustment according to patient size. FINDINGS: No intracranial hemorrhage, hydrocephalus or extra-axial fluid collection.No areas of brai n edema or evidence of midline shift. The paranasal sinuses and mastoids are essentially clear. The calvarium is intact. IMPRESSION: No acute intracranial abnormality.
[2017-05-19 10:17] VITALS: BMI 34.9
--- NOTE | 2017-05-19 23:10 | PN ---
Reason: Seizure. Interval History: The patient had a seizure this morning, was confused, had a headache, getting valle sferred to the ICU. Repeat CT scan negative/normal. EEG normal. No further seizures. Back to base line. Physical Examination: Vital Signs: He is afebrile. Vitals are stable. General: Awake, alert, oriented. HEENT: Pupils reactive. Ocular motion full. [place] full. EXTREMITIES: Strength full. Reflexes symmetric. No xzoims-bldb-glsulz ataxia. Assessment And Plan: Review of nursing notes done at 7 a.m., the patient has active seizure lasting 2 minutes. 0.5 mg lorazepam ended the episode. We do not really want to add an additional agent. P haylee is to continue the Keppra. If he has another seizure in the next 12-18 hours, will need loading with IV fosphenytoin and continue 2 drug regimen on discharge. ISRRAEL/AILYN Voice ID: [id number] Report ID: [id number]
[2017-05-20 05:13] LABS: Absolute Lymphocytes (CBC) 2.1 K/uL (0.7-4.9); Absolute Monocytes 0.7 K/uL (0.1-1.3); Absolute Neutrophil 3.5 K/uL (1.8-8.0); Basophils % 0.4 % (0-1.3); Eosinophils % 5.3 % (0-4.4); Hematocrit 39.4 % (39.6-49.0); Lymphocytes % 31.7 % (15.3-44.8); MCH 29.3 pg (27.0-35.0); MCV 85.4 fL (80-100); MPV 9.7 fL (7.6-11.3); Monocytes % 10.1 % (3.3-12.3); RBC Red Blood Cell Count 4.61 M/uL (4.33-5.43)
[2017-05-20 05:33] LABS: Magnesium 2.1 mg/dL (1.8-2.5); Potassium 3.6 mEq/L (3.6-5.0)
[2017-05-20] MEDS: levETIRAcetam 500 MG TAB PO SCH (08:08)
[2017-05-20] MEDS: LISINOPRIL 20 MG TAB PO SCH (08:09)
[2017-05-20] MEDS ORDERED: ANASTROZOLE 1 MG TAB PO SCH (09:00)
[2017-05-20] MEDS ORDERED: CLOMIPHENE CITRATE PO SCH (09:00)
[2017-05-20 09:55] VITALS: BP 125/76
[2017-05-20 09:57] VITALS: TEMP 98.3
[2017-05-20 10:15] VITALS: O2SAT 98
--- NOTE | 2017-05-20 11:05 | EEG ---
CHART: [id number] TEST ID#: [id number] DATE OF STUDY: 05/19/2017 THE EEG WAS RECORDED PORTABLE IN THE ICU ON A 17 CHANNEL MACHINE. ELECTRODES WERE APPLIED IN THE USUAL MANNER USING THE INTERNATIONAL 10-20 SYSTEM. THE WAKING BACKGROUND RHYTHM IN THIS RECORD CONSISTS OF FAIRLY WELL DEVELOPED AND FAIRLY WELL ORGANIZED WAVES OF 10 HZ., MAXIMAL IN THE POSTERIOR HEAD REGIONS WHICH ATTENUATE NORMALLY WITH EYE OPENING. IN DROWSINESS THE BACKGROUND DROPS TO 9 HZ. THERE ARE NO FOCAL OR LATERALIZING FEATURES. NO EPILEPTIFORM ACTIVITY APPEARS. SLEEP OCCURRED NATURALLY. NORMAL SLEEP PATTERNS ARE PRESENT. HYPERVENTILATION WAS NOT PERFORMED. PHOTIC STIMULATION PRODUCED GOOD DRIVING BILATERALLY. IMPRESSION: NORMAL EEG FOR THE AGE OF THE PATIENT IN [place], DROWSINESS AND SLEEP.
--- NOTE | 2017-05-20 11:08 | P.DS ---
Admission Date: 05/19/17 Discharge Date: 05/20/17 Primary Care Provider: none Disposition: ROUTINE DISCHARGE Discharge Condition: GOOD Reason for Admission: Seizure x 2, closed head injury Consultations: Neurology-Dr. Robb Procedures: CT head: IMPRESSION: No hemorrhage, edema or acute intracranial finding. Negative CT cervical spine examination for acute or significant finding. Right parietal scalp hematoma is present with underlying bone intact. MRI head: No acute changes noted - Problems (1) Laceration Status: Acute (2) History of testicular cancer Status: Chronic (3) Seizure Onset Date: 05/19/17 Status: Acute (4) Hypertension Status: Chronic Qualifiers: Hypertension type: essential hypertension Qualified Code(s): I10 - Essential (primary) hypertension (5) Obesity Status: Chronic Qualifiers: Obesity type: due to excess calories Obesity classification: adult class 2 (BMI 35 - 39.9) Serious obesity comorbidity presence: with serious comorbidity Body mass index: BMI 35.0-35.9 Qualified Code(s): E66.01 - Morbid (severe) obesity due to excess calories; Z68.35 - Body mass index (BMI) 35.0-35.9, adult; Z68.35 - Body mass index (BMI) 35.0-35.9, adult Brief History of Present Illness: 31-year-old male presented to the emergency with seizure-like activity. Patient originally had seizures that started last year after getting chemotherapy. Patient had testicular cancer at that time. His cancer is currently in remission. Patient was diagnosed with complex partial seizures at that time. Patient was placed on 1500 mg of Keppra twice daily. The patient had been taking the amount until recently. The patient decided to wean off the medication as he was doing well without seizures. He had gone down to 750 mg of Keppra twice daily. While he was at work he start to have a seizure. Patient suffered a laceration to the back of his head after a fall. The patient was brought in to the ER for evaluation. The patient was admitted for evaluation and treatment. Hospital Course: During the course of his stay the patient was placed blacked on Keppra 1500 mg 1 pill twice daily. The patient did have another episode of seizure that lasted about 2 min. He was treated and place the ICU for close monitoring. Thereafter he was without any seizure for over 24 hr. The patient was evaluated by neurology. Neurology felt that he had a seizure as the patient try to wean off his medication on his own. Patient had an MRI of the brain which was unremarkable. He also had a repeat CT of the head after his seizure in the hospital. This was unremarkable. At discharge, patient will continue back on his Keppra 1500 mg 1 pill twice daily. Recommendation is to recheck Keppra level in 1-2 weeks to monitor his progress. Recommendation is for the patient to follow up with neurology in 1 week to follow up this hospitalization and continue his care. Recommendation on seizure precautions including: No driving, no tub baths, no ladders, no heights, and no operating heavy machinery. Patient will need to have work restrictions over the next 90 days if work involves any heights, ladders or heavy machinery. Patient has hypertension. This remained stable during his stay. Patient will continue with lisinopril 20 mg one pill once daily. Recommendation is to maintain blood pressures less 150/80. Further adjustment can be done by his PCP. Patient with history of testicular cancer. Patient will continue with his current medications. Patient to follow up with oncology. Patient has hematoma to the right parietal area. Alysa in place. [place] will need to be removed in 7-14 days. This can be done by his PCP. Vital Signs/Physical Exam: Temp Pulse Resp BP Pulse Ox 98.3 F 85 16 125/76 99 05/20/17 08:00 05/20/17 09:00 05/20/17 09:00 05/20/17 09:00 05/20/17 09:00 General: Alert, In no apparent distress, Oriented x3, Cooperative HEENT: Mucous membr. moist/pink, Other ([place]ly[place] to the right parietal area) Neck: Supple, No Thyromegaly Respiratory: Clear to auscultation bilaterally, Normal air movement Cardiovascular: Normal pulses, Regular rate/rhythm Gastrointestinal: Normal bowel sounds, Soft and benign, Non-distended, No tenderness, No masses, No rebound, No guarding Musculoskeletal: No erythema, No tenderness, No warmth Integumentary: No tenderness/swelling, No erythema, No warmth, No cyanosis Neurological: Normal speech, Normal strength at 5/5 x4 extr, Normal tone, Normal affect Lymphatics: No axilla or inguinal lymphadenopathy Laboratory Data at Discharge: WBC 6.6 K/uL (4.3-10.9) D 05/20/17 04:47 Hgb 13.5 g/dL (13.6-17.9) L 05/20/17 04:47 Hct 39.4 % (39.6-49.0) L 05/20/17 04:47 Plt Count 145 K/uL (152-406) L 05/20/17 04:47 PT 12.0 SECONDS (9.5-12.5) 05/18/17 11:20 INR 1.02 05/18/17 11:20 APTT 21.5 SECONDS (24.3-36.9) L 05/18/17 11:20 Sodium 137 mEq/L (135-145) 05/20/17 04:47 Potassium 3.6 mEq/L (3.6-5.0) 05/20/17 04:47 BUN 9 mg/dL (6-20) 05/20/17 04:47 Creatinine 1.06 mg/dL (0.61-1.24) 05/20/17 04:47 Glucose 92 mg/dL (65-120) 05/20/17 04:47 Magnesium 2.1 mg/dL (1.8-2.5) 05/20/17 04:47 Total Bilirubin 0.6 mg/dL (0.3-1.2) 05/18/17 11:20 AST 34 IU/L (10-42) 05/18/17 11:20 ALT 27 IU/L (10-60) 05/18/17 11:20 Alkaline Phosphatase 54 IU/L (42-121) 05/18/17 11:20 B-Natriuretic Peptide 17 pg/ml (<=100) 05/18/17 13:00 Home Medications: Anastrozole [Arimidex*] 1 mg PO T,TH,S 05/18/17 Clomiphene Citrate 25 mg PO DAILY 05/18/17 Lisinopril [Prinivil*] 20 mg PO DAILY 05/18/17 Levetiracetam [Keppra*] 1,500 mg PO BID #180 tab 05/20/17 New Medications: Levetiracetam [Keppra*] 1,500 mg PO BID #180 tab Patient Discharge Instructions: 1. Patient will need a follow up with his PCP in 1 week to follow up this hospitalization. 2. Patient presented with seizure. Patient with history of complex partial seizure. This resulted after the patient tried to wean off medication. Patient evaluated by neurology. Patient requiring continued medication. At discharge patient will continue back on his Keppra 1500 mg 1 pill twice daily. Recommendation is to recheck Keppra level in 1-2 weeks to monitor his progress. Recommendation is for the patient to follow up with neurology in 1 week to follow up this hospitalization and continue his care. Recommendation on seizure precautions including: No driving, no tub baths, no ladders, no heights, and no operating heavy machinery. Patient will need to have work restrictions over the next 90 days if work involves any heights, ladders or heavy machinery. 3. Patient has hypertension. Patient will continue with lisinopril 20 mg one pill once daily. Recommendation is to maintain blood pressures less 150/80. Further adjustment can be done by his PCP. 4. Patient with history of testicular cancer. Patient will continue with his current medications. Patient to follow up with oncology. 5. Patient has hematoma to the right parietal area. Alysa in place. [place] will need to be removed in 7-14 days. This can be done by his PCP. Diet: AHA Followup: Rashawn Robb MD [ACTIVE - CAN ADMIT] - Time spent managing pt's care (in minutes): 55
== END 2017-05-20 09:40 | disposition home or self-care (01) | DRG 101 ==
LOC: ER 11:11 → ERHOLD 12:26 → 2ND 14:40 → 3RD-ICU 05-19 08:58 → OBSVTOIN 05-19 14:16
PROVIDERS: ADMIT Family Medicine; ATTEND Family Medicine
PROC: 0JQ03ZZ Repair Scalp Subcutaneous Tissue and Fascia, Percutaneous Approach (ICD-10-PCS; principal; 2017-05-19)
DX: R56.9 Unspecified convulsions (principal); R51 Headache; S01.01XA Laceration without foreign body of scalp, initial encounter; W18.39XA Other fall on same level, initial encounter; Y92.69 Other specified industrial and construction area as the place of occurrence of the external cause; Z85.47 Personal history of malignant neoplasm of testis; Z23 Encounter for immunization; E66.9 Obesity, unspecified; Z68.35 Body mass index [BMI] 35.0-35.9, adult
CPT/HCPCS: 36415; 70450; 70553; 71045; 72125; 80048; 80076; 81003; 82550; 82553; 83735; 83880; 84484; 85025; 85610; 85730; 86850; 86900; 86901; 90714; 93005; 95819; 96365; 96375; 99285; A9577; G0378; J1953; J3010; J7030

== ENCOUNTER 2017-06-21 23:52 | Emergency (ER) | payer OTHER ==
--- OUTSIDE RECORDS SUMMARY | 2017-06-21 23:55 | XMS REPORT | Clinical Summary ---
:1985 Author Organization [facility] Address [address] [place] [address] Care Team Providers Name Role Phone Erwin [...] whether descended or undescended (Primary Dx) after 06/20/2016 Social History Tobacco Use Types Packs/Day Years [...] procedure are in the results section. after 06/20/2016 Results Diffusion capacity (11/11/2016 9:05 AM)ECG ED Preliminary Interpretation - NOT AN ORDER (11/08/2016 11:35 PM)Only the most recent of2 resultswithin the time period is included. Narrative Slaomón Will MD 11/08/2016 11:35 PM ECG ED Preliminary Interpretation - Not an Order Performed by: SALOMÓN WILL Authorized by: SALOMÓN WILL ECG reviewed by ED Physician in the absence of a trucking contractor: yes Previous ECG: Previous ECG:Unavailable Interpretation: Interpretation: [...] be normal variant-Borderline ECG- Specimen Performing Laboratory [facility] MUSE [address] [place] [address] Estimated GFR (11/08/2016 8:00 PM)Only the most [...] and Americans. Specimen Performing Laboratory Plasma specimen [facility] DEPARTMENT OF PATHOLOGY AND GENOMIC MEDICINE [address] [place] [address] CBC with platelet and differential (11/08/2016 8:00 [...] % (promyelocytes, myelocytes, metamyelocytes) Specimen Performing Laboratory [facility] DEPARTMENT OF PATHOLOGY AND [facility] MEDICINE [address] [place] [address] Phosphorus level (11/08/2016 8:00 PM)Only the most recent of9 resultswithin the time period is included. Component Value Ref Range Phosphorus 1.5 (L) 2.4 - 4.5 mg/dL Specimen Performing Laboratory Plasma specimen [facility] DEPARTMENT OF PATHOLOGY AND [address] [address] Magnesium level (11/08/2016 8:00 PM)Only the most recent of12 resultswithin the time period is included. Component Value Ref Range Magnesium 2.1 1.6 - 2.6 mg/dL Specimen Performing Laboratory Plasma specimen [facility] DEPARTMENT OF PATHOLOGY [address] [address] Alcohol level, blood (11/08/2016 8:00 PM) Component Value Ref Range Alcohol None Detected mg/dL Comment: Normal None Detected Legal Intoxication in [place]80 mg/dL (0.08%) - Whole Blood Toxic [id number] mg/dL (0.2%) Potentially [id number] - 500 mg/dL (0.35 - 0.5%) Alcohol percent None Detected % Specimen Performing Laboratory Plasma specimen [facility] DEPARTMENT PATHOLOGY AND [address] [address] Basic metabolic panel (11/08/2016 8:00 PM)Only the [...] 10.2 mg/dL Specimen Performing Laboratory Plasma specimen [facility] DEPARTMENT OF PATHOLOGY AND [facility] MED[facility] [address] [place] [address] Head Wo Contrast (11/08/2016 7:55 PM)Only the most recent of2 resultswithin the time period is included. Specimen Performing Laboratory [facility] [address] [place] [address] Narrative EXAMINATION: CT HEAD WO CONTRAST CLINICAL [...] and could conceivably represent a seizure focus. [facility][id number] Procedure Note Interface, Radiology Results Incoming - [...] and could conceivably represent a seizure focus. [facility]-[id number] Comprehensive metabolic panel (09/19/2016 4:00 AM)Only the [...] 1.2 mg/dL Specimen Performing Laboratory Plasma specimen [facility] DEPARTMENT OF PATHOLOGY AND GENOMIC MEDICINE [address] [place] [address] MRI Abdomen W Wo Contrast (09/18/2016 6:56 PM) Specimen Performing Laboratory [facility] [address] [place] [address] Narrative EXAMINATION:MRI ABDOMEN W WO CONTRAST CLINICAL [...] no abnormality of the regional bone marrow. [facility]-[id number] Procedure Note Interface, Radiology Results Incoming - [...] no abnormality of the regional bone marrow. [facility]-[id number] Continuous EEG monitoring (09/18/2016 2:28 PM) Narrative [...] Contrast (09/15/2016 8:30 PM) Specimen Performing Laboratory [facility] [address] [place] [address] Narrative EXAMINATION:CT ABDOMEN PELVIS W CONTRAST CLINICAL [...] are postoperative changes related to right orchiectomy [facility]-[id number] Procedure Note Interface, Radiology Results [facility] - 09/15/2016 8:52 PM CDT EXAMINATION: CT [...] are postoperative changes related to right orchiectomy [facility]-[id number] MRI Brain W Wo Contrast (09/15/2016 4:48 PM) Specimen Performing Laboratory [facility] [address] [place] [address] Narrative EXAMINATION: MRI BRAIN W WO CONTRAST COMPARISON: None CLINICAL HISTORY 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 TECHNIQUE: Multiplanar multisequence examination [...] no focal abnormalities. 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 TECHNIQUE: Multiplanar multisequence examination [...] no focal abnormalities. No abnormal enhancing lesions [facility]-[id number] XR Shoulder 2+ Vw Left (09/15/2016 12:32 PM) Specimen Performing Laboratory [facility] [address] [place] [address] Narrative EXAMINATION:XR SHOULDER 2VW LEFT CLINICAL HISTORY:BONE PAINSHOULDER, R o fracture or dislocation COMPARISON:None. IMPRESSION: The left shoulder is in normal anatomic alignment. No acute fracture or dislocation. The acromioclavicular joint and coracoclavicular space are intact. The clavicle is grossly unremarkable. The visualized portions of the left hemithorax are unremarkable. [id number] Procedure Note Interface, Radiology Results Incoming - [...] portions of the left hemithorax are unremarkable. [id number] Urinalysis screen and microscopy, with reflex to [...] UA None seen Specimen Performing Laboratory Urine [facility] DEPARTMENT OF PATHOLOGY AND GENOMIC MEDICINE [address] [place] [address] Urine culture (09/15/2016 7:46 AM)Only the most recent of3 resultswithin the time period is included. Component Value Ref Range Urine culture SEE COMMENTComment: Bacteriuria screen negative. Specimen Performing Laboratory [facility] DEPARTMENT OF PATHOLOGY AND GENOMIC MEDICINE [address] [place] [address] Prothrombin time with INR (09/15/2016 7:25 AM)Only [...] vein thrombosis/pulmonary embolism. Specimen Performing Laboratory Blood [facility] DEPARTMENT OF PATHOLOGY AND GENOMIC MEDICINE [address] [place] [address] Thyroid stimulating hormone (09/15/2016 7:25 AM) Component Value Ref Range TSH 0.39 0.27 - 4.20 uIU/mL Specimen Performing Laboratory Plasma specimen [facility] DEPARTMENT OF PATHOLOGY AND [address] [address] Ionized calcium (09/15/2016 7:25 AM) Component Value Ref Range pH 7.43 Ionized calcium 1.16 1.11 - 1.32 mmol/L Specimen Performing Laboratory Plasma specimen [facility] DEPARTMENT OF PATHOLOGY AND [address] [address] EEG (routine) (09/14/2016 9:14 PM) Narrative EEG [...] acute myocardial injury. Specimen Performing Laboratory Blood [facility] OF PATHOLOGY AND [facility] MEDICINE [address] [place] [address] Lactic acid level (09/14/2016 5:30 PM)Only the most recent of2 resultswithin the time period is included. Component Value Ref Range Lactic acid 1.8 0.5 - 2.2 mmol/L Specimen Performing Laboratory Blood [facility] DEPARTMENT OF PATHOLOGY AND GENOMIC MEDICINE [address] [place] [address] Respiratory pathogen panel (09/14/2016 5:20 PM)Only the [...] Left Specimen Performing Laboratory Nares - Left [facility] DEPARTMENT OF PATHOLOGY AND GENOMIC MEDICINE [address] [place] [address] XR Thoracic Spine 2 Vw (09/14/2016 4:49 PM) Specimen Performing Laboratory [facility] [address] [place] [address] Narrative EXAMINATION:XR THORACIC SPINE 2 VW CLINICAL HISTORY:back pain s p seizure COMPARISON:None. IMPRESSION: 4 views of thoracic spine were obtained. Thoracic spine alignment is within normal limits. No compression fractures or aggressive bony lesions. No significant degenerative changes. [facility]-[id number] Procedure Note Hm Interface, Radiology Results Incoming - 09/14/2016 4:55 PM CDT EXAMINATION: XR THORACIC SPINE 2 VW CLINICAL HISTORY: back pain s p seizure COMPARISON: None. IMPRESSION: 4 views of thoracic spine were obtained. Thoracic spine alignment is within normal limits. No compression fractures or aggressive bony lesions. No significant degenerative changes. [facility]-[id number] POC glucose (09/14/2016 1:59 PM) Component Value Ref Range POC glucose 119 (H) 65 - 99 mg/dL Comment: [facility] Notified RN Meter ID: [id number] [employer] Operator: Cyrus Powell Specimen Performing Laboratory [facility] DEPARTMENT OF PATHOLOGY AND [facility] MEDICINE [address] [place] [address] Manual differential (09/14/2016 1:26 PM)Only the most [...] (A) Giant platelets Occasional Specimen Performing Laboratory [facility] DEPARTMENT OF PATHOLOGY [facility] MEDICINE [address] [place] [address] Partial thromboplastin time, activated (09/14/2016 1:26 PM)Only the most recent of3 resultswithin the time period is included. Component Value Ref Range PTT 24.5 23.0 - 36.0 sec Comment: PTT therapeutic range for unfractionated heparin is 61.0-112.0 seconds which corresponds to Anti-Xa 0.3-0.7 U/ml. Specimen Performing Laboratory Blood [facility] DEPARTMENT OF PATHOLOGY AND [facility] MEDICINE [address] [place] [address] B natriuretic peptide (09/14/2016 1:26 PM) Component Value Ref Range BNP 41 0 - 100 pg/mL Specimen Performing Laboratory Blood [facility] DEPARTMENT OF PATHOLOGY AND [facility] MEDICINE [address] [place] [address] Lipase level (09/14/2016 1:26 PM) Component Value Ref Range Lipase 25 13 - 60 U/L Specimen Performing Laboratory Plasma specimen [facility] DEPARTMENT OF PATHOLOGY AND [facility] MEDICINE [address] [place] [address] Creatine kinase, total (CPK) (09/14/2016 1:26 PM) Component Value Ref Range Creatine kinase 93 39 - 308 U/L Specimen Performing Laboratory Plasma specimen [facility] DEPARTMENT OF PATHOLOGY AND GENOMIC MEDICINE [address] [place] [address] Amylase level (09/14/2016 1:26 PM) Component Value Ref Range Amylase 24 13 - 73 U/L Specimen Performing Laboratory Plasma specimen [facility] DEPARTMENT PATHOLOGY [address] [address] Alpha fetoprotein (09/14/2016 1:15 PM)Only the most recent of3 resultswithin the time period is included. Component Value Ref Range Alpha fetoprotein 3.4 0.0 - 8.3 ng/mL Comment: The Rodo 8000 AFP immunoassay was used. Results obtained with different assay methods or kits should not be used interchangeably and may be different. Specimen Performing Laboratory Serum [facility] PATHOLOGY [address] [address] Blood culture, aerobic & anaerobic (09/14/2016 1:15 PM)Only the most recent of3 resultswithin the time period is included. Component Value Ref Range Blood culture isolate No growth after 5 days of incubation. Comment: Specimen Information Specimen Source: Blood Specimen Site: Right Arm Specimen Performing Laboratory Blood [facility] PATH[facility] [place] [id number] Sputum culture (08/12/2016 8:10 AM) Component Value Ref Range Sputum culture isolate Normal oral nikky isolated. Comment: Specimen Information Specimen Source: Sputum Specimen Site: Expectorated Specimen Performing Laboratory Sputum - Expectorated [facility] [place] [address] Gram stain (08/12/2016 8:10 AM) Component Value Ref Range Gram stain isolate Occasional WBC's Many Gram negative rods Many Gram positive cocci in pairs Many Gram positive rods Comment: Specimen Information Specimen Source: Sputum Specimen Site: Expectorated Specimen Performing Laboratory Sputum - Expectorated [facility] [address] [address] Anti Xa, unfractionated (08/11/2016 3:55 PM)Only the most recent of4 resultswithin the time period is included. Component Value Ref Range Anti Xa, unfractionated 0.38Comment: Therapeutic Range: 0.30 - 0.70 0.30 - 0.70 U/mL U/mL Specimen Performing Laboratory Blood [facility] [address] [address] Pv duplex venous upper extremity (08/11/2016 2:20 PM)Only the most recent of2 resultswithin the time period is included. Specimen Performing Laboratory [facility] [address] [place] [address] Narrative Vascular Ultrasound Laboratory Upper Extremity Venous Report [address] [address] Pat.Name:TOMAS HERNANDEZ Pat.ID:[id number] St.Date: 08/11/2016 Refer.MD:KY ROY MD Exam Time: 2:01:00 PMStudy Type:UE Venous Height:74inDOBAge:1985,[age]Y Sex: MALESonogrphr: Lucy Melgar RVT Pat. Stat.:Inpatient Room:[facility] TapeVol: [place], CPT - 4: 49832 Echo Event ID:[id number] Order ID:[id number] Reason for Study:History of superficial thrombosis in [...] Vascular Ultrasound Laboratory Upper Extremity Venous Report [address] [address] Pat.Name: TOMAS HERNANDEZ.ID: [id number] St.Date: 08/11/2016 Refer.MD: [place] ROY MD Exam Time: 2:01:00 PM Study Type:UE Venous Height: 74in Age: 8 1985,30Y Sex: MALE Sonogrphr: Lucy Melgar RVT Pat. Stat.:Inpatient Room: [address] Vol: [place], CPT - 4: [address] Echo Event ID:[id number] Order ID: [id number] Reason for Study:History of superficial thrombosis in [...] 8.1 mIU/mL Specimen Performing Laboratory Plasma specimen [facility] DEPARTMENT OF PATHOLOGY AND GENOMIC MEDICINE [address] [place] [address] PV duplex venous lower extremity (08/10/2016 10:00 AM) Specimen Performing Laboratory [facility] [address] [place] [address] Narrative Vascular Ultrasound Laboratory Lower Extremity Venous Report [address] [place] [address] Pat.Name:TOMAS HERNANDEZ.ID:[id number] St.Date: 08/10/2016 Refer.MD:UMBERTO VANG MD Exam Time: 9:54:00 AMStudy Type:LE Venous Height:74inDOBAge:1985,[age]Y Sex: MALESonogrphr: Oli Spence RVLico Pat. Stat.:Inpatient Room: TapeVol: [facility] 4: [address]6975 Echo Event ID:[id number] Order ID:[id number] Reason for Study:History of upper right arm [...] Ultrasound Laboratory Lower Extremity Venous Report [address] [place] [address] Pat.Name: TOMAS HERNANDEZ Pat.ID: [id number] .Date: 08/10/2016 Refer.MD: UMBERTO VANG MD Exam Time: 9:54:00 AM Study Type:LE Venous Height: 74in Age: 8 1985,30Y Sex: MALE Sonogrphr: BROOKE Ochoa Pat. Stat.:Inpatient Room: [address] Vol: , [facility] - 4: [address] Echo Event ID:[id number] Order ID: [id number] Reason for Study:History of upper right arm [...] Signed 08/10/2016 11:18 AM Craig Lr MD, [facility] CT Angiogram Pe Chest (08/10/2016 12:37 AM) Specimen Performing Laboratory [facility] [address] [place] [address] Narrative EXAMINATION: CT ANGIOGRAM PE CHEST CLINICAL [...] 08/10/2016 1: 46 AM who verbalized understanding. [facility]-[id number] Procedure Note [facility], Radiology Results Incoming - 08/10/2016 1:50 AM [...] 08/10/2016 1: 46 AM who verbalized understanding. [facility]-[id number] XR Chest 2 Vw (08/09/2016 10:47 PM) Specimen Performing [facility] [address] [place] [address] Narrative EXAMINATION:XR CHEST 2 VW CLINICAL HISTORY:Fever COMPARISON:08/03/2016 IMPRESSION: No consolidations, effusions, or pneumothorax. Cardiomediastinal silhouette is within normal limits. No acute osseous abnormalities. [facility]-[id number] Procedure Note Interface, Radiology Results Incoming - 08/09/2016 10:58 PM CDT EXAMINATION: XR CHEST 2 VW CLINICAL HISTORY: Fever COMPARISON: 08/03/2016 IMPRESSION: No consolidations, effusions, or pneumothorax. Cardiomediastinal silhouette is within normal limits. No acute osseous abnormalities. [facility]-[id number] Hepatic function panel (08/06/2016 2:16 AM) Component Value Ref Range Albumin 3.5 3.5 - 5.0 g/dL Total bilirubin 0.4 0.0 - 1.2 mg/dL Bilirubin direct <0.2 0.0 - 0.3 mg/dL Alkaline phosphatase 50 40 - 129 U/L Protein 6.4 6.3 - 8.3 g/dL Comment: [place] 4.6-7.0 g/dL 1 week 4.4-7.6 g/dL 7 months-1year5.1-7.3 g/dL 1-2 years5.6-7.5 g/dL >3 years6.0-8.0 g/dL 18-150 6.3-8.3 g/dL ALT 28 5 - 50 U/L AST 17 10 - 50 U/L Specimen Performing Laboratory Plasma specimen [facility] DEPARTMENT OF PATHOLOGY AND GENOMIC MEDICINE [address] [place] [address] Narrative LIVER added per Dr. Moctezuma at 08/06/16 0955 by [facility]. PICC INSERTION (08/03/2016 2:49 PM) Narrative Dung Melgar RN 08/03/20162:49 PM PICC insertion Date/Time: 08/03/2016 2:47 PM Performed by: DUNG MELGAR Authorized by: UMBERTO VANG Consent: Consent obtained:Verbal Consent given by:Patient Risks discussed: arterial puncture, incorrect placement, nerve damage, infection, bleeding, superficial thrombus and deep vein thrombus Alternatives discussed:Delayed treatment and alternative treatment [place] protocol: Procedure explained and questions answered to [...] (cm):47 Total Catheter Length (cm):47 Catheter Lot Number:[id number] Catheter Expiration Date:06/14/2018 Procedure Details: Landmarks identified: [...] Portable (08/03/2016 2:41 PM) Specimen Performing Laboratory [address] [address] Narrative EXAMINATION:XR PICC CHEST PORTABLE CLINICAL HISTORY:30 years Male 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 2.Heart and central vasculature are normal. 3.Calcified granuloma right midlung. The lungs are otherwise clear. 4.No acute osseous abnormalities. [facility]-[id number] Procedure Note Interface, Radiology Results Incoming - 08/03/2016 2:51 PM CDT EXAMINATION: XR PICC CHEST PORTABLE CLINICAL HISTORY:30 years Male C62.91 Malignant neoplasm of right testis unspecified whether descended or undescended, Chemotherapy [facility] COMPARISON: None IMPRESSION: 1. Right-sided PICC line terminates over the cavoatrial junction in satisfactory position. 2. Heart and central vasculature are normal. 3. Calcified granuloma right midlung. The lungs are otherwise clear. 4. No acute osseous abnormalities. [facility]-[id number] LDH (08/03/2016 10:19 AM) Component Value Ref Range LDH 169 87 - 225 U/L Specimen Performing Laboratory Plasma specimen [facility] DEPARTMENT OF PATHOLOGY AND GENOMIC MEDICINE [address] [place] [address] Abd/Pelvic External Study (07/15/2016 9:22 AM) Specimen Performing Laboratory [address] [address] Narrative This exam was not acquired at a [facility] facility and has not been interpreted by a [facility] Provider.The exam was imported into our imaging system for comparisons purposes. after 06/20/2016 Insurance Payer Benefit Plan / Group Subscriber ID Type Phone Address CHRISTIE SORIANO OPEN ACCESS/NETWORK xxxxxxxxxxx [facility] xxxxxxxxx [phone] [place] [address]
[2017-06-22] MEDS ORDERED: LEVETIRACETAM 500 MG/5 ML VIAL IV ONE (00:08)
[2017-06-22] MEDS ORDERED: NA CHLORIDE 0.9% 1,000 ML ONE (00:08)
[2017-06-22] MEDS ORDERED: NA CHLORIDE 0.9% 100 ML IV ONE (00:08)
[2017-06-22 00:40] LABS: Absolute Lymphocytes (CBC) 1.2 K/uL (0.7-4.9); Absolute Monocytes 0.5 K/uL (0.1-1.3); Absolute Neutrophil 3.4 K/uL (1.8-8.0); Basophils % 0.6 % (0-1.3); Eosinophils % 5.5 % (0-4.4); Hematocrit 39.2 % (39.6-49.0); MCH 28.6 pg (27.0-35.0); MCV 85.5 fL (80-100); MPV 10.3 fL (7.6-11.3); Monocytes % 8.6 % (3.3-12.3); RBC Red Blood Cell Count 4.59 M/uL (4.33-5.43)
[2017-06-22 00:44] LABS: Potassium 3.9 mEq/L (3.6-5.0)
[2017-06-22 00:47] LABS: Bilirubin Total 0.5 mg/dL (0.3-1.2); Protein, Total 6.6 g/dL (6.0-8.3)
--- NOTE | 2017-06-22 01:16 | EDPHYS ---
Physician Documentation [facility] Name: Tomas Mathews Age: 31 yrs Sex: Male : 1985 Arrival Date: 06/21/2017 Time: 23:55 Bed 24 Private MD: ED Physician Norman Jiménez HPI: 06/21 23:58 This 31 yrs old Male presents to ER via Unassigned with complaints of Seizure.cory 23:58 The patient presents after having a single isolated seizure, that lasted. Character of cory seizure(s): Loss of consciousness: the patient experienced loss of consciousness, Motor activity: generalized. Seizure onset: just prior to arrival. Context: the seizure(s) was witnessed, by family, mother. Seizure Hx: Cause: unknown, Last seizure: The patient's last seizure was approximately 6 month(s) ago. Associated injury: The patient did not suffer any apparent associated injury. The patient has experienced similar episodes in the past, several times. Historical: - Allergies: 06/22 00:54 No Known Allergies; rk2 - Home Meds: 00:55 Keppra Oral [Active]; lisinopril Oral [Active]; rk2 - PMHx: 00:54 Hypertension; testicular CA; Seizures; rk2 - Immunization history:: Pneumococcal vaccine status is unknown. - Family history:: not pertinent. - Social history:: Smoking status: unknown. ROS: 06/21 23:58 Constitutional: Negative for fever, chills, and weight loss, Eyes: Negative for injury, cory pain, redness, and discharge, ENT: Negative for injury, pain, and discharge, Neck: Negative for injury, pain, and swelling, Cardiovascular: Negative for chest pain, palpitations, and edema, Respiratory: Negative for shortness of breath, cough, wheezing, and pleuritic chest pain, Abdomen/GI: Negative for abdominal pain, nausea, vomiting, diarrhea, and constipation, Back: Negative for injury and pain, : Negative for injury, bleeding, discharge, and swelling, MS/Extremity: Negative for injury and deformity, Skin: Negative for injury, rash, and discoloration, Psych: Negative for depression, anxiety, suicide ideation, homicidal ideation, and hallucinations, Allergy/Immunology: Negative for hives, rash, and allergies, Endocrine: Negative for neck swelling, polydipsia, polyuria, polyphagia, and marked weight changes. Neuro: Positive for seizure activity. Exam: 23:58 Constitutional: This is a well developed, well nourished patient who is awake, alert, cory and in no acute distress. Head/Face: Normocephalic, atraumatic. Eyes: Pupils equal round and reactive to light, extra-ocular motions intact. Lids and lashes normal. Conjunctiva and sclera are non-icteric and not injected. Cornea within normal limits. Periorbital areas with no swelling, redness, or edema. ENT: Nares patent. No nasal discharge, no septal abnormalities noted. Tympanic membranes are normal and external auditory canals are clear. Oropharynx with no redness, swelling, or masses, exudates, or evidence of obstruction, uvula midline. Mucous membranes moist. Neck: Trachea midline, no thyromegaly or masses palpated, and no cervical lymphadenopathy. Supple, full range of motion without nuchal rigidity, or vertebral point tenderness. No Meningismus. Chest/axilla: Normal chest wall appearance and motion. Nontender with no deformity. No lesions are appreciated. Cardiovascular: Regular rate and rhythm with a normal S1 and S2. No gallops, murmurs, or rubs. Normal PMI, no JVD. No pulse deficits. Respiratory: Lungs have equal breath sounds bilaterally, clear to auscultation and percussion. No rales, rhonchi or wheezes noted. No increased work of breathing, no retractions or nasal flaring. Abdomen/GI: Soft, non-tender, with normal bowel sounds. No distension or tympany. No guarding or rebound. No evidence of tenderness throughout. Back: No spinal tenderness. No costovertebral tenderness. Full range of motion. Male : Normal genitalia with no discharge or lesions. Skin: Warm, dry with normal turgor. Normal color with no rashes, no lesions, and no evidence of cellulitis. MS/ Extremity: Pulses equal, no cyanosis. Neurovascular intact. Full, normal range of motion. Psych: Awake, alert, with orientation to person, place and time. Behavior, mood, and affect are within normal limits. 23:58 Neuro: Orientation: appropriate for stated age, no acute changes, Mentation: is normal, appropriate for stated age, no acute changes, Memory: is normal, appropriate for stated age, no acute changes, Cranial nerves: grossly normal, is grossly normal based on the patient's age, no acute changes, Cerebellar function: is grossly normal, is grossly normal based on the patient's age, no acute changes, Motor: moves all fours, Sensation: no obvious gross deficits, appropriate no acute changes, Gait: not tested. seizure activity, is not displayed by the patient. Vital Signs: 06/22 00:03 BP 130 / 78; Pulse 91; Resp 18; Temp 98.3; Pulse Ox 100% on R/A; Weight 120.2 kg; rk2 01:00 BP 122 / 74; Pulse 76; Resp 17; Pulse Ox 99% on R/A; rk2 [place] Coma Score: 00:00 Eye Response: spontaneous(4). Verbal Response: oriented(5). Motor Response: obeys rk2 commands(6). Total: 15. MDM: 06/21 23:57 [facility]. [facility] 06/21 23:58 Order name: CBC with Diff; Complete Time: 01:15 [facility] 06/21 23:58 Order name: Comprehensive Metabolic Panel; Complete Time: 01:15 [facility] 06/22 01:30 Order name: Urine Dipstick--Ancillary (enter results) [facility] 06/21 23:58 Order name: Urine Dipstick-Ancillary (obtain specimen); Complete Time: 01:26 [facility] 06/21 23:58 Order name: Seizure Precautions; Complete Time: 00:21 [facility] Administered Medications: 06/22 00:07 CANCELLED (Duplicate Order): Keppra 1000 mg IV at per protocol once [facility] 00:16 Drug: NS 0.9% 1000 ml Route: IV; Rate: 1 bolus; Site: left antecubital; rk2 01:26 Follow up: Response: No adverse reaction; IV Status: Completed infusion rk2 00:16 Drug: Keppra 500 mg Route: IV; Rate: per protocol; Site: left antecubital; rk2 00:30 Follow up: Response: No adverse reaction; IV Status: Completed infusion rk2 Disposition: 06/22/17 01:15 Discharged to Home. Impression: Epilepsy and recurrent seizures. - Condition is Stable. - Discharge Instructions: Seizure, Adult, Seizure, Adult, [id number]. - Medication Reconciliation Form, Thank You Letter, Antibiotic Education, Prescription Opioid Use form. - Follow up: Private Physician; When: 2 - 3 days; Reason: Recheck today's complaints, Continuance of care, Re-evaluation by your physician. Follow up: Rashawn Robb; When: 2 - 3 days; Reason: Recheck today's complaints, Continuance of care, Re-evaluation by your physician. - Problem is new. - Symptoms have improved. Signatures: Dispatcher [employer] Norman Reveles MD MD cha Kidder, Rhonda RN RN rk2 Corrections: (The following items were deleted from the chart) 00:07 06/21 23:58 Keppra 1000 mg IV at per protocol once ordered. cory ray 06/22 01:37 01:15 06/22/2017 01:15 Discharged to Home. Impression: Epilepsy and recurrent seizures. rk2 Condition is Stable. Discharge Instructions: Seizure, Adult, Seizure, Adult, [id number]. Forms are Medication Reconciliation Form, Thank You Letter, Antibiotic Education, Prescription Opioid Use. Follow up: Private Physician; When: 2 - 3 days; Reason: Recheck today's complaints, Continuance of care, Re-evaluation by your physician. Follow up: Rashawn Robb; When: 2 - 3 days; Reason: Recheck today's complaints, Continuance of care, Re-evaluation by your physician. Problem is new. Symptoms have improved. cory
--- NOTE | 2017-06-22 01:16 | ER ---
Nurse's Notes [facility] Name: Tomas Mathews Age: 31 yrs Sex: Male : 1985 Arrival Date: 06/21/2017 Time: 23:55 Bed 24 Private MD: Diagnosis: Epilepsy and recurrent seizures Presentation: 06/22 00:00 Presenting complaint: EMS states: Pt. comes from home by EMS c/o seizures... rk2 clonic/tonic type seizure lasting 2-3 min, postictal upon EMS arrival. Pt. A\T\O x 4 upon arrival to ED. Pt. has hx of seizures, was admitted x 4 weeks ago for seizures and has f/u with neuro and instructed. pt. states that he is compliant with medications. Transition of care: patient was not received from another setting of care. Onset of symptoms was June 22, 2017. Initial Sepsis Screen: Does the patient meet any 2 criteria? No. Patient's initial sepsis screen is negative. Does the patient have a suspected source of infection? No. Patient's initial sepsis screen is negative. Care prior to arrival: IV initiated. 20 GA, in the left antecubital area. 00:00 Method Of Arrival: EMS: [facility] rk2 00:00 Acuity: TARYN 3 rk2 Triage Assessment: 00:00 General: Appears in no apparent distress. Behavior is calm, cooperative. rk2 00:00 Pain: Denies pain. Neuro: Level of Consciousness is alert, obeys commands, Oriented to rk2 person, place, time, situation. Respiratory: Airway is patent Respiratory effort is even, unlabored, Respiratory pattern is regular, symmetrical. Derm: Skin is pink, warm \T\ dry. Historical: - Allergies: 00:54 No Known Allergies; rk2 - Home Meds: 00:55 Keppra Oral [Active]; lisinopril Oral [Active]; rk2 - PMHx: 00:54 Hypertension; testicular CA; Seizures; rk2 - Immunization history:: Pneumococcal vaccine status is unknown. - Family history:: not pertinent. - Social history:: Smoking status: unknown. Screenin:00 Abuse screen: Denies threats or abuse. rk2 00:00 Nutritional screening: No deficits noted. Tuberculosis screening: No symptoms or risk rk2 factors identified. Fall Risk Secondary diagnosis (15 points) seizures, IV access (20 points). Assessment: 01:00 Reassessment: Patient appears in no apparent distress at this time. No changes from rk2 previously documented assessment. Patient and/or family updated on plan of care and expected duration. Pain level reassessed. No needs voiced \T\ this time. Vital Signs: 00:03 BP 130 / 78; Pulse 91; Resp 18; Temp 98.3; Pulse Ox 100% on R/A; Weight 120.2 kg; rk2 01:00 BP 122 / 74; Pulse 76; Resp 17; Pulse Ox 99% on R/A; rk2 [place] Coma Score: 00:00 Eye Response: spontaneous(4). Verbal Response: oriented(5). Motor Response: obeys rk2 commands(6). Total: 15. ED Course: 06/21 23:55 Patient arrived in ED. am2 23:57 Norman Jiménez MD is Attending Physician. cory 23:59 Mary Coates RN is Primary Nurse. rk2 06/22 00:00 Patient has correct armband on for positive identification. Placed in gown. Bed in low rk2 position. Call light in reach. Side rails up X2. Adult w/ patient. Seizure precautions initiated. Pulse ox on. 00:03 Triage completed. rk2 01:15 Rashawn Robb MD is Referral Physician. cory 01:36 No provider procedures requiring assistance completed. IV discontinued. rk2 01:37 Arm band placed on. rk2 Administered Medications: 00:07 CANCELLED (Duplicate Order): Keppra 1000 mg IV at per protocol once cory 00:16 Drug: NS 0.9% 1000 ml Route: IV; Rate: 1 bolus; Site: left antecubital; rk2 01:26 Follow up: Response: No adverse reaction; IV Status: Completed infusion rk2 00:16 Drug: Keppra 500 mg Route: IV; Rate: per protocol; Site: left antecubital; rk2 00:30 Follow up: Response: No adverse reaction; IV Status: Completed infusion rk2 Outcome: 01:15 Discharge ordered by . cory 01:36 Discharged to home ambulatory. rk2 01:36 Condition: improved 01:36 Discharge instructions given to patient. 01:37 Patient left the ED. rk2 Signatures: Norman Jiménez MD MD cha Moreno, Amanda am2 Marion, Mary, RN RN rk2
[2017-06-22 01:42] LABS: Urine Blood 1+ (NEG); Urine Glucose NEGATIVE (NEG); Urine Protein NEGATIVE (NEG); Urine Specific Gravity 1.015 (1.005-1.030)
[2017-06-22 01:43] VITALS: TEMP 98.3
[2017-06-22 01:45] VITALS: BP 122/74; O2SAT 99
== END 2017-06-22 01:37 | disposition home or self-care (01) ==
LOC: ER 23:52
DX: G40.802 Other epilepsy, not intractable, without status epilepticus (principal); I10 Essential (primary) hypertension; Z85.47 Personal history of malignant neoplasm of testis
CPT/HCPCS: 36415; 80053; 81003; 85025; 96361; 96374; 99283; J1953; J7030